=== PATIENT | female | born 1950 | race Caucasian/White ===

== ENCOUNTER → 2020-10-07 10:12 | Outpatient (POV) | payer MEDICARE, SELFPAY | PROVIDERS: Visit Provider Otolaryngology | DX: Z00.00 Encounter for general adult medical examination without abnormal findings (principal) ==

== ENCOUNTER 2022-11-19 03:15 | Observation (INO) | payer MEDICARE, SELFPAY ==
[2022-11-19] VITALS (8 sets, daily range): BP systolic 111–164; BP diastolic 48–64; PULSE 74–100; RESP 16–20; TEMP 36.6–36.9; O2SAT 90–100; BMI 29.9; BMI 30.2
--- NOTE | 2022-11-19 03:46 | XR_ITS ---
PROCEDURE INFORMATION: Exam: XR Chest Exam date and time: 11/19/2022 5:08 AM Age: 72 years old Clinical indication: Other: Epigastric pain; Additional info: Epigastic pain TECHNIQUE: Imaging protocol: Radiologic exam of the chest. Views: 1 view. COMPARISON: CT ABDOMEN PELVIS W CON 11/19/2022 4:48 AM FINDINGS: Lungs: Unremarkable. No consolidation. Pleural spaces: Unremarkable. No pleural effusion. No pneumothorax. Heart/Mediastinum: Unremarkable. No cardiomegaly. Bones/joints: Unremarkable. IMPRESSION: No acute findings.
--- NOTE | 2022-11-19 03:46 | CT_ITS ---
PROCEDURE INFORMATION: Exam: CT Head Without Contrast Exam date and time: 11/19/2022 4:46 AM Age: 72 years old Clinical indication: Pain; Headache TECHNIQUE: Imaging protocol: Computed tomography of the head without contrast. Radiation optimization: All CT scans at this facility use at least one of these dose optimization techniques: automated exposure control; mA and/or kV adjustment per patient size (includes targeted exams where dose is matched to clinical indication); or iterative reconstruction. REPORTING DATA: Count of CT and Cardiac NM exams in prior 12 months: This patient has received [address] and 0 known cardiac nuclear medicine studies in the 12 months prior to the current study. COMPARISON: No relevant prior studies available. FINDINGS: Brain: There is diffuse prominence of the cerebral sulci, cisterns, and ventricles consistent with atrophy. No intra or extra-axial fluid collections are noted. No mass or mass effect is seen. Periventricular white matter hypoattenuation is seen consistent with small vessel chronic ischemic changes. Cerebral ventricles: No ventriculomegaly. Paranasal sinuses: Visualized sinuses are unremarkable. No fluid levels. Mastoid air cells: Visualized mastoid air cells are well aerated. Bones/joints: Unremarkable. No acute fracture. Soft tissues: Unremarkable. IMPRESSION: No acute process noted.
--- NOTE | 2022-11-19 03:46 | CT_ITS ---
PROCEDURE INFORMATION: Exam: CT Abdomen And Pelvis With Contrast Exam date and time: 11/19/2022 4:48 AM Age: 72 years old Clinical indication: Abdominal pain TECHNIQUE: Imaging protocol: Computed tomography of the abdomen and pelvis with contrast. Radiation optimization: All CT scans at this facility use at least one of these dose optimization techniques: automated exposure control; mA and/or kV adjustment per patient size (includes targeted exams where dose is matched to clinical indication); or iterative reconstruction. Contrast material: ISOVUE; Contrast volume: 75 ml; Contrast route: IV; REPORTING DATA: Count of CT and Cardiac NM exams in prior 12 months: This patient has received [address] and 0 known cardiac nuclear medicine studies in the 12 months prior to the current study. COMPARISON: No relevant prior studies available. FINDINGS: Liver: Normal. No mass. Gallbladder and bile ducts: Dependent sludge is seen in the gallbladder. Pancreas: Normal. No ductal dilation. Spleen: Benign-appearing splenic granulomas. Adrenal glands: Normal. No mass. Kidneys and ureters: Normal. No hydronephrosis. Stomach and bowel: Concentric thickening and inflammatory change of the sigmoid colon is noted. Adjacent edema and fluid is seen. Discrete abscess is not identified. No obstruction is noted. Extensive diverticulosis is present. Appendix: No evidence of appendicitis. Intraperitoneal space: Unremarkable. No free air. No significant fluid collection. Vasculature: Unremarkable. No abdominal aortic aneurysm. Lymph nodes: Unremarkable. No enlarged lymph nodes. Urinary bladder: Unremarkable as visualized. Reproductive: Unremarkable as visualized. Bones/joints: Unremarkable. No acute fracture. Soft tissues: Broad-based ventral hernia. IMPRESSION: 1. Moderately severe diverticulitis of the sigmoid colon. No perforation or obstruction is noted. 2. Cholelithiasis.
--- NOTE | 2022-11-19 03:49 | HMH.EDGENADL ---
Discharge Plan Disposition Patient Disposition: Admitted As Inpatient Condition: Fair Prescriptions Prescriptions: No Action atorvastatin 10 MG Tablet 10 mg PO DAILY lisinopril 20 MG Tablet 20 mg PO DAILY aspirin [Aspir-81] 81 MG Tablet.Dr 81 mg PO DAILY bupropion HCl 150 MG Tab.Er.24h 150 mg PO DAILY prednisone 20 MG Tablet 20 mg PO BID Qty: 10 0RF Referrals Follow up/Referrals: Yessica Murdock [Primary Care Provider] - See instructions Clinical Impressions Clinical Impression: Diverticulitis of sigmoid colon, Fever, Leukocytosis Discharge ED Provider: Lili Mora Adult HPI General Chief complaint: Abdominal Pain Stated complaint: HILLIARD,Nausea,Fever,Abd pain Time Seen by Provider: 11/19/22 03:24 Mode of Arrival: Ambulatory Source of Information: Patient Limitations: No Limitations Description of Symptoms (Recalled from ER Triage Doc. by RN): Pt present today with complaints of frontal HILLIARD with dizziness and nausea. Pt has hx of vertigo. States she been having lower left abdominal pain worse with BM and sitting. Rates the pain 10/10 when doing so. States her stool is liquid like yellow in color. History of Present Illness HPI narrative: Patient is a 72-year-old female who is here secondary to severe lower abdominal pain she has been going on for 6 months and got worse in the past 2 weeks. Patient's last 20 pounds since March 2022. Patient has nausea, vomiting, soft stool, headache, fevers of 102. No neck pain. Patient has a history of breast cancer and with mastectomy and chemotherapy but that was in 2011. Patient has been in remission since then. Patient has no urinary symptoms or urgency frequency or burning urination. She does have a frontal headache but she has not had a sore throat. She is not vaccinated for COVID or flu or pneumonia. She had a colonoscopy 10 years ago but has not had a recheck on a colonoscopy. She is not having any belching burping or heartburn. She said her stool has been different in terms of more yellowish and change in pattern with soft stools. She has lost weight as well. Onset (ago): month(s) Location: abdomen Radiation: non-radiation Severity: moderate Severity scale (1-10): 8 Quality: stabbing and sharp Consistency: constant Relieving factors: none Exacerbating factors: none Associated symptoms: headaches, loss of appetite and nausea/vomiting Treatments prior to arrival: none Related Data Home Medications Medication Instructions Recorded Confirmed aspirin 81 mg tablet,delayed 81 mg PO DAILY Blood thinner 02/15/18 10/21/18 release (Aspir-) atorvastatin 10 mg tablet 10 mg PO DAILY Hypertension 02/15/18 10/21/18 bupropion HCl 150 mg 24 hr tablet, 150 mg PO DAILY Depression 02/15/18 10/21/18 extended release lisinopril 20 mg tablet 20 mg PO DAILY Hypertension 02/15/18 11/19/22 Previous Rx's Medication Instructions Recorded prednisone 20 mg tablet 20 mg PO BID ##10 10/22/18 Allergies Allergy/AdvReac Type Severity Reaction Status Date / Time oxycodone [From Percocet] Allergy Verified 11/19/22 03:48 [facility] Disclaimer: The information contained in this section may have been updated after the patient was seen, as this information can be updated by other users. Social History Smoking Status: Never smoker alcohol intake: never current occupational status: disabled Travel in the last 8 weeks: None caffeine: No ROS Obtained: Yes All systems reviewed & no additional complaints except as documented Constitutional Constitutional: Reports chills and Reports fever(s) Gastrointestinal Gastrointestingal: Reports abdominal pain and nausea Physical Exam General General appearance: alert Head Head exam: atraumatic, normocephalic and normal inspection Eye Eye exam: Present normal appearance, PERRL and EOMI; Absent scleral icterus or conjunctival
--- NOTE | 2022-11-19 03:57 | ECG_ITS ---
APPROVED REPORT Exam: Resting ECG HR:91 bpm ECG Measurements Heart Rate 91 AXES FL 191 P 53 QRSd 95 QRS 11 QT 340 T 67 QTc 389 Conclusion SINUS RHYTHM Normal ECG UNCONFIRMED REPORT Electronically signed by : Shawn Bethea MD 11/20/2022 08:35:14
[2022-11-19 04:00] LABS: Coronavirus 19, PCR Not Detected (NotDetected); Influenza A, PCR Not Detected (NotDetected); Influenza B, PCR Not Detected (NotDetected)
[2022-11-19 04:10] LABS: Alanine Aminotransferase 16 U/L (12-78); Albumin Level 4.2 g/dl (3.5-5.0); Albumin/Globulin Ratio 1.3 (1.1-1.8); Alkaline Phosphatase 103 U/L (38-126); Anion Gap 8.7 mEq/L (5-15); Aspartate Amino Transferase 20 U/L (14-36); Bilirubin,Total 1.1 mg/dl (0.2-1.3); Blood Urea Nitrogen 9 mg/dl (7-17); Calcium 8.9 mg/dl (8.4-10.2); Carbon Dioxide 26 mmol/L (22.0-30.0); Chloride 100 mmol/L (98-107); Creatinine Clearance Estimated 71 mL/min (50-200); Estimated Glomerular Filt Rate 99 ml/min (>60); GFR (African American) 119 ML/MIN (>60); Globulin 3.3 g/dL (1.3-3.2); Glucose 149 mg/dl (74-100); Lipase 28 U/L (23-300); Potassium 3.7 mmoL/L (3.5-5.1); Sodium 131 mmol/L (136-145); Total Protein,Serum 7.5 g/dl (6.3-8.2)
[2022-11-19 04:11] LABS: Activated Partial Thrombo Time 27.6 seconds (22.8-30.6); INR 1.02 (0.9-1.1)
[2022-11-19 04:12] LABS: Basophils % 0.2 % (0.1-2.0); Eosinophils # 0.2 K/mm3 (0.0-0.4); Eosinophils % 1.1 % (0.1-12.0); Hematocrit 39.4 % (37.0-47.0); Hemoglobin 13.1 g/dL (12.2-16.2); Lymphocytes # 2.2 K/mm3 (0.7-4.5); Lymphocytes % 12.8 % (10-50); Mean Corpuscular HGB Conc 33.1 g/dL (31.8-35.4); Mean Corpuscular Hemoglobin 29.2 pg (27.0-31.2); Mean Corpuscular Volume 88.2 fl (81-99); Mean Platelet Volume 8.3 fl (7.4-10.4); Monocytes # 1.2 K/mm3 (0.1-1.0); Monocytes % 6.8 % (1.7-9.3); Neutrophils # 13.8 K/mm3 (1.8-7.8); Neutrophils % 79.1 % (37.0-80.0); Platelet Count 455 K/mm3 (142-424); Red Blood Count 4.46 M/mm3 (4.20-5.40); Red Cell Distribution Width 13.6 % (11.5-17.5); White Blood Count 17.4 K/mm3 (4.8-10.8)
[2022-11-19 04:13] LABS: Creatine Kinase 47 U/L (30-135)
[2022-11-19 04:17] LABS: Lactic Acid 0.8 mmol/L (0.7-2.1)
[2022-11-19 04:22] LABS: MANUAL DIFFERENTIAL MANUAL DIFFERENTIAL (MANUAL DIFF)
[2022-11-19 04:23] LABS: CKMB Relative Index 0.4 U/L (0-4.0); Creatine Kinase MB < 0.2 ng/ml (0.0-2.03); Troponin I < 0.01 ng/ml (0.00-0.034)
[2022-11-19 04:24] LABS: Microscopic, Urine URINE MICROSCOPIC (MICROSCOPIC)
[2022-11-19 04:26] LABS: Appearance,Urine CLEAR (Clear); Bilirubin,Urine Negative (Negative); Blood, Urine 1+ (Negative); Color,Urine YELLOW (Yellow); Glucose,Urine (UA) Negative (Negative); Ketones,Urine TRACE (Negative); Leukocyte Esterase,Urine 1+ (Negative); Nitrate,Urine Negative (Negative); Protein,Urine TRACE (Negative); Specific Gravity, Urine 1.025 (1.005-1.030); Urobilinogen,Urine 0.2 EU/dl (0.2)
[2022-11-19 04:27] LABS: Bacteria,Urine 1+ /lpf
[2022-11-19 05:21] LABS: Lymphocytes % 19 % (10-50); Monocytes % 3 % (2-9); Neutrophils % 77 % (42-76); Platelet Estimate Normal; RBC Morphology Normal; Total Cells Counted 100
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
--- NOTE | 2022-11-19 06:46 | PC.NURSE ---
Pt arrived via wheelchair @ [id number]
--- NOTE | 2022-11-19 11:02 | HMH.PHAINT1 ---
Pharmacy Intervention Comments: MEDICATION RECONCILIATION COMPLETED ON PATIENT USING EXTERNAL FILL HISTORY FROM PHARMACY. -KAREN BRAUN, PRIYAD
--- NOTE | 2022-11-19 11:03 | PC.NURSE ---
courtesy tech note; rounded on pt, assisted pt to toilet standby assist. pt denied need for drink or need to reposition. call light within reach, no further requests at this time. Shaunna Lin, ALVINO
--- NOTE | 2022-11-19 12:44 | EXP.DC.SUM ---
General Admission date:: 11/19/22 HPI HPI HPI: Ms. Sun is a 72-year-old female with a past medical history of Breast Cancer s/p Masectomy and Chemotherapy, HTN, Hyperlipidemia. She presents to [facility] due to a 6 month episode of Lower abdominal quadrant pain that has worsened over the last 2 weeks associated with nausea, vomiting and fevers up to 102.0 in the home. She also reports that she has lost 20 pound unintentionally since 03/2022 secondary to not being able to eat well due to the pain. She reports that her last colonoscopy was approximately 10 years ago. In the ER, she underwent a CT of the abdomen and pelvis that showed moderate to severe diverticulitis of the sigmoid colon with no perforation or obstruction. CBC showed a WBC of 17.4. Urinalysis showed 1 plus bacteria, 1 plus leukoesterase, was negtive for nitrates and showed 1 plus blood. In the ER, the patient received, Zosyn 3.375 grams x 1 and Normal Saline x 1 Liter. The patient will be admitted with initial impression: Acute Diverticulitis. We will continue iv antibiotics, slowly advance diet as tolerates. Recommended outpatient colonoscopy at discharge. The plan of care was discussed on admission with the patient and her at bedside in the ER. Both verbalized understanding and agreement with the plan of care. Hospital Course Hospital Course Hospital Course: Patient was admitted from the emergency department for sigmoid diverticulitis. Patient was started on IV antibiotics Zosyn. Patient was given clear liquid diet morning tolerated well, tolerated regular diet and afternoon requesting to go home. Since patient is ambulating having bowel movements had a decrease in pain and is able to eat will discharge on p.o. antibiotics with primary care physician follow-up. Exam Data for Last 24 hours Vital signs and Labs for Last 24 Hours: Temp Pulse Resp BP Pulse Ox 98.0 F 75 19 128/58 L 100 11/19/22 08:00 11/19/22 08:00 11/19/22 08:00 11/19/22 08:00 11/19/22 08:10 Laboratory Results - last 24 hr 11/19/22 03:30: Urine Color Yellow, Urine Appearance Clear, Urine pH 6.0, Ur Specific [place] 1.025, Urine Protein Trace, Urine Glucose (UA) Negative, Urine Ketones Trace, Urine Blood 1+, Urine Nitrate Negative, Urine Bilirubin Negative, Urine Urobilinogen 0.2, Ur Leukocyte Esterase 1+ A, Urine RBC 3-5, Urine WBC 5-10, Ur Squamous Epith Cells 3-5, Urine Bacteria 1+ 11/19/22 03:30: WBC 17.4 H, RBC 4.46, Hgb 13.1, Hct 39.4, MCV 88.2, MCH 29.2, MCHC 33.1, RDW 13.6, Plt Count 455 H, MPV 8.3, Neut % (Auto) 79.1, Lymph % (Auto) 12.8, [place] % (Auto) 6.8, Eos % (Auto) 1.1, Baso % (Auto) 0.2, Neut # (Auto) 13.8 H, Lymph # (Auto) 2.2, [place] # (Auto) 1.2 H, Eos # (Auto) 0.2, Baso # (Auto) 0.0, Total Counted 100, Neutrophils % (Manual) 77 H, Lymphocytes % (Manual) 19, Monocytes % (Manual) 3, Basophils % (Manual) 1.0, Platelet Estimate Normal, RBC Morphology Normal 11/19/22 03:30: PT 11.0, INR 1.02, APTT 27.6 11/19/22 03:30: Sodium 131 L, Potassium 3.7, Chloride 100, Carbon Dioxide 26, Anion Gap 8.7, BUN 9, Creatinine 0.60, Estimated Creat Clear 71, Estimated GFR 99, Est GFR ( Amer) 119, Glucose 149 H, Calcium 8.9, Total Bilirubin 1.1, AST 20, ALT 16, Alkaline Phosphatase 103, Total Creatine Kinase 47, CK-MB (CK-2) < 0.2, CK-MB (CK-2) Rel Index 0.4, Troponin I < 0.01, Total Protein 7.5, Albumin 4.2, Globulin 3.3 H, Albumin/Globulin Ratio 1.3, Lipase 28 11/19/22 03:30: Lactate 0.8 11/19/22 03:50: SARS-CoV-2 (PCR) Not detected, Influenza A Untype (PCR) Not detected, Influenza Type B (PCR) Not detected I & O for Last 24 hours: Intake & Output 04/11/23 04/12/23 04/13/23 04/14/23 23:59 23:59 23:59 23:59 Output Total 100 / 100 Balance -100 / -100 Weight 87.5 kg Constitutional Constitutional: no acute distress *Routine HEENT Exam Head: Present normocephalic Eye: Present EOMI and PERRL ENT: Present mucous membranes moist *Routine
--- NOTE | 2022-11-22 15:42 | CARE MANAGER ---
Spoke with patient's as she was sleeping. He states she feels the same and is still having abdominal pain. She has only been able to tolerate a liquid diet. She has follow up with PCP on 11/25. Discussed getting in sooner if pain continues. Denies any other questions or concerns. Patient is taking antibiotics. SUSAN Powell
== END 2022-11-19 13:35 | disposition home or self-care (01) ==
LOC: ER 05:20 → 2ND 06:09
PROVIDERS: Admitting Provider Student in an Organized Health Care Education/Training Program; Emergency Provider Emergency Medicine; PCP Family Medicine; Visit Provider Student in an Organized Health Care Education/Training Program
DX: K57.32 Diverticulitis of large intestine without perforation or abscess without bleeding (principal); I10 Essential (primary) hypertension; E78.5 Hyperlipidemia, unspecified; Z79.899 Other long term (current) drug therapy; Z28.310 Unvaccinated for COVID-19; N39.0 Urinary tract infection, site not specified; F17.210 Nicotine dependence, cigarettes, uncomplicated; R10.30 Lower abdominal pain, unspecified
CPT/HCPCS: G0378; 70450; 71045; 74177; 80053; 81001; 82550; 82553; 83605; 83690; 84484; 85007; 85025; 85610; 85730; 87086; 93005; 99285; C9803; J0131; J2405; J2543; Q9967; U0003; U0005

== ENCOUNTER 2024-01-16 14:04 | Observation (INO) | payer MEDICARE, SELFPAY ==
[2024-01-16] VITALS (9 sets, daily range): BP systolic 128–165; BP diastolic 64–89; PULSE 63–73; RESP 18–20; TEMP 36.3–36.8; O2SAT 92–99; BMI 29.7; BMI 29.3
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
--- NOTE | 2024-01-16 14:22 | CT_ITS ---
FINAL REPORT CLINICAL HISTORY: Acute abdominal pain COMPARISON: 11/19/2022 FINDINGS: CT OF THE ABDOMEN AND PELVIS WITH CONTRAST Axial CT images of the abdomen and pelvis were obtained after the administration of IV contrast. Coronal reformatted images were also obtained and reviewed.This study was performed with techniques to keep radiation doses as low as reasonably achievable (ALARA). Individualized dose reduction techniques using automated exposure control or adjustment of mA and/or kV according to the patient''s size were employed. Abdomen: There is postoperative change in the right anterior chest wall. Mild bibasilar atelectasis is noted. There is a small amount of ascites. The heart is normal in size. The liver has an unremarkable appearance, without evidence of mass or biliary ductal dilatation. Multiple gallstones are noted in the gallbladder. There is gallbladder wall thickening. Acute cholecystitis is not excluded. The spleen is unremarkable. No adrenal mass is present. The pancreas has an unremarkable appearance. There are several small bilateral renal cysts measuring up to 12 mm on the right. No follow-up is recommended as these are most likely benign. There is a 3 mm nonobstructing left renal stone. The aorta is normal in caliber. There are borderline right abdominal mesenteric nodes which are stable and may be reactive. There are multiple fluid-filled bowel loops in a nonspecific pattern. Enteritis is not excluded. Sigmoid diverticulosis is noted. Pelvis: The appendix is normal. The urinary bladder is unremarkable. No inflammatory process is seen. IMPRESSION: Multiple fluid-filled dilated bowel loops, likely enteritis. Gallstones with mild gallbladder wall thickening. Cholecystitis not excluded. If indicated, hepatobiliary scan may further evaluate. Small amount of ascites. Reviewed, Interpreted and Dictated by Josh Reyes III, MD Transcribed by Sheba Maya Authenticated and [facility]
[2024-01-16 14:58] LABS: Adenovirus F 40/41, stool Not Detected (NotDetected); Astrovirus Not Detected (NotDetected); Campylobacter Not Detected (NotDetected); Clostridium Difficile A/B, PCR Not Detected (NotDetected); Cryptosporidium Not Detected (NotDetected); Cyclospora Cayetanesis Not Detected (NotDetected); Entamoeba histolytica Not Detected (NotDetected); Enteroaggregative E coli Not Detected (NotDetected); Enteropathogenic E coli Not Detected (NotDetected); Enterotoxigenic E coli Not Detected (NotDetected); Giardia lamblia Not Detected (NotDetected); Norovirus Not Detected (NotDetected); Plesimonas Shigalloides, PCR Not Detected (NotDetected); Rotavirus A Not Detected (NotDetected); Salmonella, PCR Not Detected (NotDetected); Sapovirus Not Detected (NotDetected); Shiga-like toxin E coli Not Detected (NotDetected); Shigella Enterovasive E coli Not Detected (NotDetected); Vibrio Cholerae Not Detected (NotDetected); Vibrio, PCR Not Detected (NotDetected); Yersinia Entercolitica, PCR Not Detected (NotDetected)
[2024-01-16] MEDS: KETOROLAC 30MG/ML VIAL 15 MG IV (14:58)
[2024-01-16] MEDS: ONDANSETRON 4MG/2ML VIAL 4 MG IV (14:58)
[2024-01-16] MEDS: LACTATED RINGERS 1000ML 1,000 ML 999 ML IV (14:58)
[2024-01-16] MEDS: ACETAMINOPHEN 1,000MG/100ML VIAL 1000 MG IV (14:58)
[2024-01-16 15:00] LABS: Microscopic, Urine URINE MICROSCOPIC (MICROSCOPIC)
[2024-01-16 15:05] LABS: Appearance,Urine CLOUDY (Clear); Bilirubin,Urine Negative (Negative); Blood, Urine TRACE-I (Negative); Color,Urine YELLOW (Yellow); Glucose,Urine (UA) Negative (Negative); Ketones,Urine Negative (Negative); Leukocyte Esterase,Urine 3+ (Negative); Nitrate,Urine Negative (Negative); PH,Urine 7.5 (5.0-8.5); Protein,Urine Negative (Negative); Urobilinogen,Urine 0.2 EU/dl (0.2)
[2024-01-16 15:05] LABS: Basophils # 0.1 K/mm3 (0-0.2); Basophils % 0.7 % (0.1-2.0); Eosinophils # 0.5 K/mm3 (0.0-0.4); Hematocrit 44.5 % (37.0-47.0); Hemoglobin 14.7 g/dL (12.2-16.2); Lymphocytes # 3.6 K/mm3 (0.7-4.5); Lymphocytes % 24.6 % (10-50); Mean Corpuscular Hemoglobin 29.6 pg (27.0-31.2); Mean Corpuscular Volume 89.8 fl (81-99); Mean Platelet Volume 8.5 fl (7.4-10.4); Monocytes # 0.8 K/mm3 (0.1-1.0); Monocytes % 5.2 % (1.7-9.3); Neutrophils # 9.8 K/mm3 (1.8-7.8); Neutrophils % 66.4 % (37.0-80.0); Platelet Count 396 K/mm3 (142-424); Red Blood Count 4.96 M/mm3 (4.20-5.40); Red Cell Distribution Width 14.7 % (11.5-17.5); White Blood Count 14.8 K/mm3 (4.8-10.8)
[2024-01-16 15:07] LABS: Chloride 102 mmol/L (98-107); Potassium 4.1 mmoL/L (3.5-5.1); Sodium 140 mmol/L (136-145)
[2024-01-16 15:09] LABS: Lactic Acid 1.1 mmol/L (0.7-2.1)
[2024-01-16 15:10] LABS: Alanine Aminotransferase 22 U/L (12-78); Albumin Level 4.3 g/dl (3.5-5.0); Albumin/Globulin Ratio 1.3 (1.1-1.8); Alkaline Phosphatase 92 U/L (38-126); Anion Gap 10.1 mEq/L (5-15); Aspartate Amino Transferase 25 U/L (14-36); Bilirubin,Total 0.7 mg/dl (0.2-1.3); Blood Urea Nitrogen 13 mg/dl (7-17); Calcium 9.6 mg/dl (8.4-10.2); Carbon Dioxide 32 mmol/L (22.0-30.0); Creatinine Clearance Estimated 69 mL/min (50-200); Estimated Glomerular Filt Rate 98 ml/min (>60); GFR (African American) 119 ML/MIN (>60); Globulin 3.4 g/dL (1.3-3.2); Glucose 104 mg/dl (74-100); Lipase 44 U/L (23-300); Total Protein,Serum 7.7 g/dl (6.3-8.2)
[2024-01-16 15:11] LABS: Magnesium 2.1 mg/dl (1.6-2.3)
--- NOTE | 2024-01-16 15:11 | PC.NURSE ---
PT provided with warm blanket
[2024-01-16 15:21] LABS: Bacteria,Urine Trace /lpf; Transitional Epi Cells,Urine OCC #/lpf (0-3); WBC,Urine 50-100 #/hpf (0-3)
--- NOTE | 2024-01-16 15:47 | PC.NURSE ---
PT to CT by WC at this time
[2024-01-16] MEDS: SODIUM CHLORIDE 0.9% 10ML SYR (RAD ONLY) 10 ML IV (15:56)
[2024-01-16] MEDS: IOPAMIDOL-370 (76%);100ML BOTTLE 75 ML IV (15:57)
--- NOTE | 2024-01-16 16:45 | PC.NURSE ---
KOREY VILCHIS SPEAKING WITH DR OLIVO
--- NOTE | 2024-01-16 16:49 | PC.NURSE ---
FISCAL CLERK NOTIFIED OF ADMISSION
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
--- NOTE | 2024-01-16 16:59 | PC.NURSE ---
REPORT CALLED TO SUSAN STONE ON THE FLOOR
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
--- NOTE | 2024-01-16 17:23 | PC.NURSE ---
arrived by w/c from ED
[2024-01-16] MEDS: LACTATED RINGERS 1000ML 1,000 ML 75 ML IV (17:46)
[2024-01-16] MEDS: PIPERACILLIN/TAZO 3.375 GM in 0.9 % SODIUM CHLORIDE 50 ML IV ×2 (17:46→21:52)
[2024-01-16] MEDS: MELATONIN 10 MG 10 EACH PO (20:19)
[2024-01-16 20:28] LABS: Adenovirus F 40/41, stool Not Detected (NotDetected); Astrovirus Not Detected (NotDetected); Campylobacter Not Detected (NotDetected); Clostridium Difficile A/B, PCR Not Detected (NotDetected); Cryptosporidium Not Detected (NotDetected); Cyclospora Cayetanesis Not Detected (NotDetected); Entamoeba histolytica Not Detected (NotDetected); Enteroaggregative E coli Not Detected (NotDetected); Enteropathogenic E coli Not Detected (NotDetected); Enterotoxigenic E coli Not Detected (NotDetected); Giardia lamblia Not Detected (NotDetected); Norovirus Not Detected (NotDetected); Plesimonas Shigalloides, PCR Not Detected (NotDetected); Rotavirus A Not Detected (NotDetected); Salmonella, PCR Not Detected (NotDetected); Sapovirus Not Detected (NotDetected); Shiga-like toxin E coli Not Detected (NotDetected); Shigella Enterovasive E coli Not Detected (NotDetected); Vibrio Cholerae Not Detected (NotDetected); Vibrio, PCR Not Detected (NotDetected); Yersinia Entercolitica, PCR Not Detected (NotDetected)
[2024-01-16] MEDS: TRAZODONE 50MG TABLET 25 MG PO (23:00)
--- NOTE | 2024-01-17 03:47 | PC.NURSE ---
Pt is alert and oriented x4 and currently tolerating RA well. Pt c/o trouble sleeping, contacted BALWINDER Garcia and was treated per MAR. Pt remains NPO and has been since MD in prep for ultrasound this am. Pt denies pain and has no other acute changes this shift.
[2024-01-17 04:00] VITALS: BP 104/53; PULSE 70; RESP 16; TEMP 36.8; O2SAT 96; BMI 29.3
[2024-01-17] MEDS: PIPERCILLIN/TAZO 3.375 GM in 0.9 % SODIUM CHLORIDE 50 ML IV (04:07)
[2024-01-17 06:56] LABS: Basophils # 0.1 K/mm3 (0-0.2); Basophils % 0.7 % (0.1-2.0); Eosinophils # 0.6 K/mm3 (0.0-0.4); Eosinophils % 5.1 % (0.1-12.0); Hematocrit 41.2 % (37.0-47.0); Hemoglobin 13.3 g/dL (12.2-16.2); Lymphocytes # 2.7 K/mm3 (0.7-4.5); Lymphocytes % 25.4 % (10-50); Mean Corpuscular HGB Conc 32.4 g/dL (31.8-35.4); Mean Corpuscular Hemoglobin 29.7 pg (27.0-31.2); Mean Corpuscular Volume 91.6 fl (81-99); Mean Platelet Volume 9.4 fl (7.4-10.4); Monocytes # 0.9 K/mm3 (0.1-1.0); Monocytes % 8.5 % (1.7-9.3); Neutrophils # 6.5 K/mm3 (1.8-7.8); Neutrophils % 60.3 % (37.0-80.0); Platelet Count 314 K/mm3 (142-424); Red Cell Distribution Width 14.7 % (11.5-17.5); White Blood Count 10.8 K/mm3 (4.8-10.8)
--- NOTE | 2024-01-17 07:03 | P.PN_ITS ---
Subjective Patient reports: feels better Exam Data for Last 24 hours Vital signs and Labs for Last 24 Hours: Temp Pulse Resp BP Pulse Ox O2 Del Method 98.2 F 70 16 104/53 L 96 Room Air 01/17/24 04:00 01/17/24 04:00 01/17/24 04:00 01/17/24 04:00 01/17/24 04:00 01/17/24 06:55 Laboratory Results - last 24 hr 01/16/24 14:10: Urine Color Yellow, Urine Appearance Cloudy, Urine pH 7.5, Ur Specific [place] 1.010, Urine Protein Negative, Urine Glucose (UA) Negative, Urine Ketones Negative, Urine Blood Trace-i, Urine Nitrate Negative, Urine Bilirubin Negative, Urine Urobilinogen 0.2, Ur Leukocyte Esterase 3+ A, Urine RBC 3-5, Urine WBC 50-100, Ur Squamous Epith Cells 3-5, Ur Transition Epith Cell Occ, Urine Bacteria Trace 01/16/24 14:51: WBC 14.8 H, RBC 4.96, Hgb 14.7, Hct 44.5, MCV 89.8, MCH 29.6, MCHC 33.0, RDW 14.7, Plt Count 396, MPV 8.5, Neut % (Auto) 66.4, Lymph % (Auto) 24.6, [place] % (Auto) 5.2, Eos % (Auto) 3.0, Baso % (Auto) 0.7, Neut # (Auto) 9.8 H, Lymph # (Auto) 3.6, [place] # (Auto) 0.8, Eos # (Auto) 0.5 H, Baso # (Auto) 0.1, Sodium 140, Potassium 4.1, Chloride 102, Carbon Dioxide 32 H, Anion Gap 10.1, BUN 13, Creatinine 0.60, Estimated Creat Clear 69, Estimated GFR 98, Est GFR ( Amer) 119, Glucose 104 H, Lactate 1.1, Calcium 9.6, Magnesium 2.1, Total Bilirubin 0.7, AST 25, ALT 22, Alkaline Phosphatase 92, Total Protein 7.7, Albumin 4.3, Globulin 3.4 H, Albumin/Globulin Ratio 1.3, Lipase 44 01/16/24 14:55: Stl Aeromonas (PCR) Not detected, Stl C. cayetanensis PCR Not detected, Stool Rotavirus (PCR) Not detected, Stl Adenov F 40/41 PCR Not detecte d, Stool Astrovirus (PCR) Not detected, Stool Campylobacter PCR Not detected, Stl C.difficile Tox PCR Not detected, Stool Cryptosporidium PCR Not detected, Stl E.coli Shiga Tox PCR Not detected, Stool E coli O157 PCR Not detected, Stl Enterotoxigenic E PCR Not detected, Stool EPEC (PCR) Not detected, Stool EAEC (PCR) Not detected, Stl E. histolytica PCR Not detected, Stool Giardia Lamblia PCR Not detected, Stool Salmonella PCR Not detected, Stool Sapovirus (PCR) Not detected, Stl P. shigelloides PCR Not detected, Stl Shigella/EIEC PCR Not detected, St Y.enterocolitica PCR Not detected, Stool Vibrio (PCR) Not detected, Stl Vibrio cholerae PCR Not detected, Stl Norovirus GI/GII PCR Not detected 01/16/24 20:21: Stl Aeromonas (PCR) Not detected, Stl C. cayetanensis PCR Not detected, Stool Rotavirus (PCR) Not detected, Stl Adenov F 40/41 PCR Not detected, Stool Astrovirus (PCR) Not detected, Stool Campylobacter PCR Not detected, Stl C.difficile Tox PCR Not detected, Stool Cryptosporidium PCR Not detected, Stl E.coli Shiga Tox PCR Not detected, Stool E coli O157 PCR Not detected, Stl Enterotoxigenic E PCR Not detected, Stool EPEC (PCR) Not detected, Stool EAEC (PCR) Not detected, Stl E. histolytica PCR Not detected, Stool Giardia [place] PCR Not detected, Stool Salmonella PCR Not detected, Stool Sapovirus (PCR) Not detected, Stl P. shigelloides PCR Not detected, Stl Shigella/EIEC PCR Not detected, St Y.enterocolitica PCR Not detected, Stool Vibrio (PCR) Not detected, Stl Vibrio cholerae PCR Not detected, Stl Norovirus GI/GII PCR Not detected I & O for Last 24 hours: Intake & Output 01/14/24 01/15/24 01/16/24 01/17/24 11:59 11:59 11:59 11:59 Intake Total 240 / 240 Output Total 0 / 0 Balance 240 / 240 Weight 187 lb Constitutional Constitutional: no acute distress *Routine Respiratory Exam Respiratory: Absent respiratory distress *Routine Cardiovascular Exam Cardiovascular: Absent tachycardia *Routine Abdominal Exam Abdominal: Present soft Progress Note: A&P Assessment and plan (1) Enteritis: Status: Acute (2) Leukocytosis: Status: Acute (3) Hyperlipidemia: Status: Acute (4) Hypertension: Status: Acute (5) Diverticulosis: Status: Chronic (6) Cholelithiasis: Status: Acute Assessment and Plan Assessment and Plan for All Diagnoses:: The patient currently feels better . She is hopeful that she will be discharged today. She states that she was made n.p.o. after midnight for ultrasound today. Okay from surgical standpoint for discharge with outpatient follow-up (Dr. Chen)
[2024-01-17 07:05] LABS: Chloride 104 mmol/L (98-107); Potassium 4.4 mmoL/L (3.5-5.1); Sodium 136 mmol/L (136-145)
[2024-01-17 07:07] LABS: Blood Urea Nitrogen 11 mg/dl (7-17); Creatinine Clearance Estimated 68 mL/min (50-200); Estimated Glomerular Filt Rate 98 ml/min (>60); GFR (African American) 119 ML/MIN (>60)
[2024-01-17 07:08] LABS: Alanine Aminotransferase 19 U/L (12-78); Albumin Level 3.9 g/dl (3.5-5.0); Albumin/Globulin Ratio 1.3 (1.1-1.8); Alkaline Phosphatase 83 U/L (38-126); Anion Gap 12.4 mEq/L (5-15); Aspartate Amino Transferase 26 U/L (14-36); Bilirubin,Total 0.8 mg/dl (0.2-1.3); Carbon Dioxide 24 mmol/L (22.0-30.0); Globulin 3.1 g/dL (1.3-3.2); Glucose 99 mg/dl (74-100); Magnesium 2.3 mg/dl (1.6-2.3)
--- NOTE | 2024-01-17 07:30 | PC.NURSE ---
[place] aware pt wants to go home today.
--- NOTE | 2024-01-17 07:36 | HMH.PHAINT1 ---
Pharmacy Intervention Comments: HOME MEDICATION LIST VERIFIED USING LIST FROM PHARMACY
--- NOTE | 2024-01-17 07:42 | PC.NURSE ---
Pt. refused morning medications.
[2024-01-17 08:00] VITALS: BP 143/62; PULSE 78; RESP 18; TEMP 36.6; O2SAT 98
--- NOTE | 2024-01-17 08:39 | PC.NURSE ---
Pt. wants to leave AMA and charge aware.
--- NOTE | 2024-01-17 08:42 | PC.NURSE ---
. aware pt wants to leave AMA.
--- NOTE | 2024-01-17 08:52 | PC.NURSE ---
Pt. agreed to stay for US.
--- NOTE | 2024-01-17 09:12 | PC.NURSE ---
Pt. now refused US and signed AMA papers... Sergio aware.
--- NOTE | 2024-01-17 10:23 | P.DS_ITS ---
General Admission date:: 01/16/24 Discharge date: 01/17/24 HPI HPI HPI: Mrs. Sun is a 73-year-old female with history of breast cancer, abdominal hernia repair 12 years ago, hypertension. She presents with onset of abdominal pain over the past 24 to 48 hours. States she takes milk of magnesia every other day to help have regular bowel movements. Describes these bowel movements as Pratt stool scale class and VII. Reported increased cramping in her lower abdomen and some mild nausea. No blood in stool. No nay emesis. Presented to the ER for evaluation. CT of abdomen obtained showing concern for thickened wall of gallbladder and presence of gallstones. Also noted to have some edematous loops of bowel. White cell count mildly elevated at 14. Afebrile. Stable on room air. Given concern for possible cholecystitis with image findings and leukocytosis versus enteritis, surgery was consulted for evaluation and medicine consulted for admission. On evaluation after arriving to the floor, patient is pleasant and appears hemodynamically stable. On room air. Afebrile. Denies any current nausea or vomiting. Denies any burning when she urinates. Reports pressure-like discomfort in her lower abdomen. No known sick contacts. Denies chest pain or shortness of breath. Hospital Course Hospital Course Hospital Course: patient left AMA and did not wait for US abdomen, could not perform detailed exam on the patient, spoke to the patient who initially said she would wait for US abd and then left AMA Exam Data for Last 24 hours Vital signs and Labs for Last 24 Hours: Temp Pulse Resp BP Pulse Ox O2 Del Method 97.8 F 78 18 143/62 H 98 Room Air 01/17/24 08:00 01/17/24 08:00 01/17/24 08:00 01/17/24 08:00 01/17/24 08:00 01/17/24 08:00 Laboratory Results - last 24 hr 01/16/24 14:10: Urine Color Yellow, Urine Appearance Cloudy, Urine pH 7.5, Ur Specific [place] 1.010, Urine Protein Negative, Urine Glucose (UA) Negative, Urine Ketones Negative, Urine Blood Trace-i, Urine Nitrate Negative, Urine Bilirubin Negative, Urine Urobilinogen 0.2, Ur Leukocyte Esterase 3+ A, Urine RBC 3-5, Urine WBC 50-100, Ur Squamous Epith Cells 3-5, Ur Transition Epith Cell Occ, Urine Bacteria Trace 01/16/24 14:51: WBC 14.8 H, RBC 4.96, Hgb 14.7, Hct 44.5, MCV 89.8, MCH 29.6, MCHC 33.0, RDW 14.7, Plt Count 396, MPV 8.5, Neut % (Auto) 66.4, Lymph % (Auto) 24.6, Petroleum % (Auto) 5.2, Eos % (Auto) 3.0, Baso % (Auto) 0.7, Neut # (Auto) 9.8 H, Lymph # (Auto) 3.6, Petroleum # (Auto) 0.8, Eos # (Auto) 0.5 H, Baso # (Auto) 0.1, Sodium 140, Potassium 4.1, Chloride 102, Carbon Dioxide 32 H, Anion Gap 10.1, BUN 13, Creatinine 0.60, Estimated Creat Clear 69, Estimated GFR 98, Est GFR ( Amer) 119, Glucose 104 H, Lactate 1.1, Calcium 9.6, Magnesium 2.1, Total Bilirubin 0.7, AST 25, ALT 22, Alkaline Phosphatase 92, Total Protein 7.7, Albumin 4.3, Globulin 3.4 H, Albumin/Globulin Ratio 1.3, Lipase 44 01/16/24 14:55: Stl Aeromonas (PCR) Not detected, Stl C. cayetanensis PCR Not detected, Stool Rotavirus (PCR) Not detected, Stl Adenov F 40/41 PCR Not detected, Stool Astrovirus (PCR) Not detected, Stool Campylobacter PCR Not detected, Stl C.difficile Tox PCR Not detected, Stool Cryptosporidium PCR Not detected, Stl E.coli Shiga Tox PCR Not detected, Stool E coli O157 PCR Not detected, Stl Enterotoxigenic E PCR Not detected, Stool EPEC (PCR) Not detected, Stool EAEC (PCR) Not detected, Stl E. histolytica PCR Not detected, Stool Giardia Lamblia PCR Not detected, Stool Salmonella PCR Not detected, Stool Sapovirus (PCR) Not detected, Stl P. shigelloides PCR Not detected, Stl Shigella/EIEC PCR Not detected, St Y.enterocolitica PCR Not detected, Stool Vibrio (PCR) Not detected, Stl Vibrio cholerae PCR Not detected, Stl Norovirus GI/GII PCR Not detected 01/16/24 20:21: Stl Aeromonas (PCR) Not detected, Stl C. cayetanensis PCR Not detected, Stool Rotavirus (PCR) Not detected, Stl Adenov F 40/41 PCR Not detected, Stool Astrovirus (PCR) Not detected, Stool Campylobacter PCR Not detected, Stl C.difficile Tox PCR Not detected, Stool Cryptosporidium PCR Not detected, Stl E.coli Shiga Tox PCR Not detected, Stool E coli O157 PCR Not detected, Stl Enterotoxigenic E PCR Not detected, Stool EPEC (PCR) Not detected, Stool EAEC (PCR) Not detected, Stl E. histolytica PCR Not detected, Stool Giardia Lamblia PCR Not detected, Stool Salmonella PCR Not detected, Stool Sapovirus (PCR) Not detected, Stl P. shigelloides PCR Not detected, Stl Shigella/EIEC PCR Not detected, St Y.enterocolitica PCR Not detected, Stool Vibrio (PCR) Not detected, Stl Vibrio cholerae PCR Not detected, Stl Norovirus GI/GII PCR Not detected 01/17/24 06:13: WBC 10.8 D, RBC 4.50, Hgb 13.3, Hct 41.2, MCV 91.6, MCH 29.7, MCHC 32.4, RDW 14.7, Plt Count 314, MPV 9.4, Neut % (Auto) 60.3, Lymph % (Auto) 25.4, Petroleum % (Auto) 8.5, Eos % (Auto) 5.1, Baso % (Auto) 0.7, Neut # (Auto) 6.5, Lymph # (Auto) 2.7, Petroleum # (Auto) 0.9, Eos # (Auto) 0.6 H, Baso # (Auto) 0.1, Sodium 136, Potassium 4.4, Chloride 104, Carbon Dioxide 24, Anion Gap 12.4, BUN 11, Creatinine 0.60, Estimated Creat Clear 68, Estimated GFR 98, Est GFR ( Amer) 119, Glucose 99, Calcium 9.0, Magnesium 2.3, Total Bilirubin 0.8, AST 26, ALT 19, Alkaline Phosphatase 83, Total Protein 7.0, Albumin 3.9, Globulin 3.1, Albumin/Globulin Ratio 1.3 I & O for Last 24 hours: Intake & Output 06/08/24 01/15/24 01/16/24 01/17/24 23:59 23:59 23:59 23:59 Intake Total 240 / 240 Output Total 0 / 0 0 / 0 Balance 0 / 240 240 / 240 Weight 84.776 kg 84.822 kg Results Data Completed and Pending Labs on day of discharge: Labs from last 24 hours 01/17/24 01/16/24 01/16/24 06:13 20:21 14:55 WBC 10.8 D RBC 4.50 Hgb 13.3 Hct 41.2 MCV 91.6 MCH 29.7 MCHC 32.4 RDW 14.7 Plt Count 314 MPV 9.4 Neut % (Auto) 60.3 Lymph % (Auto) 25.4 Petroleum % (Auto) 8.5 Eos % (Auto) 5.1 Baso % (Auto) 0.7 Neut # (Auto) 6.5 Lymph # (Auto) 2.7 Petroleum # (Auto) 0.9 Eos # (Auto) 0.6 H Baso # (Auto) 0.1 Sodium 136 Potassium 4.4 Chloride 104 Carbon Dioxide 24 Anion Gap 12.4 BUN 11 Creatinine 0.60 Estimated Creat Clear 68 Estimated GFR 98 Est GFR ( Amer) 119 Glucose 99 Lactate Calcium 9.0 Magnesium 2.3 Total Bilirubin 0.8 AST 26 ALT 19 Alkaline Phosphatase 83 Total Protein 7.0 Albumin 3.9 Globulin 3.1 Albumin/Globulin Ratio 1.3 Lipase Urine Color Urine Appearance Urine pH Ur Specific [place] Urine Protein Urine Glucose (UA) Urine Ketones Urine Blood Urine Nitrate Urine Bilirubin Urine Urobilinogen Ur Leukocyte Esterase Urine RBC Urine WBC Ur Squamous Epith Cells Ur Transition Epith Cell Urine Bacteria Stl Aeromonas (PCR) Not detected Not detected Stl C. cayetanensis PCR Not detected Not detected Stool Rotavirus (PCR) Not detected Not detected Stl Adenov F 40/41 PCR Not detected Not detected Stool Astrovirus (PCR) Not detected Not detected Stool Campylobacter PCR Not detected Not detected Stl C.difficile Tox PCR Not detected Not detected Stool Cryptosporidium PCR Not detected Not detected Stl E.coli Shiga Tox PCR Not detected Not detected Stool E coli O157 PCR Not detected Not detected Stl Enterotoxigenic E PCR Not detected Not detected Stool EPEC (PCR) Not detected Not detected Stool EAEC (PCR) Not detected Not detected Stl E. histolytica PCR Not detected Not detected Stool Giardia Lamblia PCR Not detected Not detected Stool Salmonella PCR Not detected Not detected Stool Sapovirus (PCR) Not detected Not detected Stl P. shigelloides PCR Not detected Not detected Stl Shigella/EIEC PCR Not detected Not detected St Y.enterocolitica PCR Not detected Not detected Stool Vibrio (PCR) Not detected Not detected Stl Vibrio cholerae PCR Not detected Not detected Stl Norovirus GI/GII PCR Not detected Not detected 01/16/24 01/16/24 14:51 14:10 WBC 14.8 H RBC 4.96 Hgb 14.7 Hct 44.5 MCV 89.8 MCH 29.6 MCHC 33.0 RDW 14.7 Plt Count 396 MPV 8.5 Neut % (Auto) 66.4 Lymph % (Auto) 24.6 Petroleum % (Auto) 5.2 Eos % (Auto) 3.0 Baso % (Auto) 0.7 Neut # (Auto) 9.8 H Lymph # (Auto) 3.6 Petroleum # (Auto) 0.8 Eos # (Auto) 0.5 H Baso # (Auto) 0.1 Sodium 140 Potassium 4.1 Chloride 102 Carbon Dioxide 32 H Anion Gap 10.1 BUN 13 Creatinine 0.60 Estimated Creat Clear 69 Estimated GFR 98 Est GFR ( Amer) 119 Glucose 104 H Lactate 1.1 Calcium 9.6 Magnesium 2.1 Total Bilirubin 0.7 AST 25 ALT 22 Alkaline Phosphatase 92 Total Protein 7.7 Albumin 4.3 Globulin 3.4 H Albumin/Globulin Ratio 1.3 Lipase 44 Urine Color Yellow Urine Appearance Cloudy Urine pH 7.5 Ur Specific [place] 1.010 Urine Protein Negative Urine Glucose (UA) Negative Urine Ketones Negative Urine Blood Trace-i Urine Nitrate Negative Urine Bilirubin Negative Urine Urobilinogen 0.2 Ur Leukocyte Esterase 3+ A Urine RBC 3-5 Urine WBC 50-100 Ur Squamous Epith Cells 3-5 Ur Transition Epith Cell Occ Urine Bacteria Trace Stl Aeromonas (PCR) Stl C. cayetanensis PCR Stool Rotavirus (PCR) Stl Adenov F 40/41 PCR Stool Astrovirus (PCR) Stool Campylobacter PCR Stl C.difficile Tox PCR Stool Cryptosporidium PCR Stl E.coli Shiga Tox PCR Stool E coli O157 PCR Stl Enterotoxigenic E PCR Stool EPEC (PCR) Stool EAEC (PCR) Stl E. histolytica PCR Stool Giardia Lamblia PCR Stool Salmonella PCR Stool Sapovirus (PCR) Stl P. shigelloides PCR Stl Shigella/EIEC PCR St Y.enterocolitica PCR Stool Vibrio (PCR) Stl Vibrio cholerae PCR Stl Norovirus GI/GII PCR DS: Diagnosis Discharge Diagnosis (1) Enteritis: Status: Acute Code(s): K52.9 - Noninfective gastroenteritis and colitis, unspecified (2) Leukocytosis: Status: Acute Code(s): D72.829 - Elevated white blood cell count, unspecified Qualifiers: Leukocytosis type: leukemoid reaction Qualified Code(s): D72.823 - Leukemoid reaction (3) Hyperlipidemia: Status: Acute Code(s): E78.5 - Hyperlipidemia, unspecified (4) Hypertension: Status: Acute Code(s): I10 - Essential (primary) hypertension (5) Diverticulosis: Status: Chronic Code(s): K57.90 - Diverticulosis of intestine, part unspecified, without perforation or abscess without bleeding (6) Cholelithiasis: Status: Acute Code(s): K80.20 - Calculus of gallbladder without cholecystitis without obstruction Meds Home Medications and Allergies Home Medications Medication Instructions Recorded Confirmed Type atorvastatin 10 mg tablet (Lipitor) 10 mg PO DAILY Cholesterol 02/15/18 01/16/24 History lisinopril 20 mg tablet 20 mg PO DAILY Hypertension 02/15/18 01/16/24 History celecoxib 200 mg capsule 200 mg PO DAILY Arthritis 11/19/22 01/16/24 History levocetirizine 5 mg tablet 5 mg PO DAILY Allergy symptoms 11/19/22 01/16/24 History melatonin 10 mg tablet 10 mg PO HS insomnia 11/19/22 01/16/24 History New Prescriptions to Start Prescriptions: Allergies Allergy/AdvReac Type Severity Reaction Status Date / Time oxycodone [From Percocet] Allergy Verified 01/16/24 18:38 Discharge Plan Disposition Patient Disposition: Left Against Medical Advice Condition: Good Providers Admit Provider: Pepe Demarco Attending Provider: Pepe Demarco
== END 2024-01-17 09:44 | disposition left against medical advice (07) ==
LOC: ER 15:26 → 2ND 16:52
PROVIDERS: Physician Assistant; Admitting Provider Internal Medicine Adolescent Medicine; Emergency Provider Emergency Medicine; PCP Family Medicine; Visit Provider Internal Medicine Adolescent Medicine
DX: K52.9 Noninfective gastroenteritis and colitis, unspecified; D72.823 Leukemoid reaction; E78.5 Hyperlipidemia, unspecified; I10 Essential (primary) hypertension; K57.90 Diverticulosis of intestine, part unspecified, without perforation or abscess without bleeding; K80.20 Calculus of gallbladder without cholecystitis without obstruction; Z79.899 Other long term (current) drug therapy
CPT/HCPCS: 36415; 74177; 80053; 81001; 83605; 83690; 83735; 85025; 87086; 87506; 87507; 99285; G0378; J0131; J1885; J2405; J2543; J7120; Q9967

== ENCOUNTER 2024-01-30 08:05 | Outpatient (CLI) | payer MEDICARE, MEDICAID, SELFPAY ==
--- NOTE | 2024-01-30 08:05 | US_ITS ---
FINAL REPORT CLINICAL HISTORY: Gallstones FINDINGS: Sonographic images of the right upper quadrant were obtained. The pancreas is partially obscured.The liver has an unremarkable appearance. There are numerous tiny gallstones. There is no evidence of biliary ductal dilatation.The common duct measures 4mm. Limited images of the right kidney are unremarkable. IMPRESSION: Numerous tiny gallstones. Reviewed, Interpreted and Dictated by Bonnie Dutta MD Transcribed by Carin Gao Authenticated and . [facility]
== END 2024-01-30 23:59 | disposition home or self-care (01) ==
LOC: RAD 08:05
PROVIDERS: PCP Family Medicine; Visit Provider Surgery
DX: K80.20 Calculus of gallbladder without cholecystitis without obstruction (principal)
CPT/HCPCS: 76705

== ENCOUNTER 2025-01-26 10:23 | Observation (INO) | payer MEDICARE, MEDICAID, SELFPAY ==
[2025-01-26] VITALS (10 sets, daily range): BP systolic 139–172; BP diastolic 69–92; PULSE 77–96; RESP 16–18; TEMP 36.5–37; O2SAT 95–98; BMI 29.9; BMI 31.2
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
--- OUTSIDE RECORDS SUMMARY | 2025-01-26 10:41 | XMS_ITS | Encounter Summary ---
Author Organization Healthcare Address [address] [id number] Care Team Providers Care Assistant To The Ceo Name Role Phone Yessica Murdock MD Primary Care Provider Mariah Aguilar LIQUEFIED PETRO[employer] GASFITTER Unavailable Unavailable Ebony Mohr LIQUEFIED PETROLEUM GASFITTER Unavailable Unavaila ble Reason for Visit * Reason Comments Med Refill Encounter Details Date Type Department Care Team (Late st Contact Info) Description 05/11/2021 Refill [facility] [address] [place] [phone] Yessica Murdock MD [address] [place] [address] Social History Tobacco Use Types Packs/Day Years Used Date Smoking Tobacco: Former Comments Unknown Sex and Gender Information Value Date Recorded Sex Assigned at Not on file Legal Sex Female 8:27 PM EDT Gender Identity Not on file Sexual Orientation Not on file documented as of this encounter Miscellaneous Notes * Telephone Encounter - Martha Almaraz MA - 05/13/2021 11:12 AM EDT Patient is scheduling an appt. She currently has a 30 day supply * Telephone Encounter - Darwin Meyers CPhT - 05/13/2021 9:51 AM EDT Patient missed call but requests a call back again * Telephone Encounter - Taylor Lizama MA - 05/13/2021 8:52 AM EDT Left message for patient to call office documented in this encounter Plan of Treatment Not on file documented as of this encounter Visit Diagnoses Not on filedocumented in this encounter Additional Health Concerns Infection Onset Date Last Indicated Resolved Time COVID-19 Rule-Out 05/10/2024 05/10/2024 05/10/2024 1:59 PM EDT documented as of this encounter Care Teams Assistant To The Ceo Relationship Specialty Start Date End Date Yessica Murdock MD [address] [place] [phone] PCP - General 12/19/20 Mariah Aguilar LPN [employer] [address] TCM Nurse 11/22/22 12/21/22 Ebony Mohr LPN [employer] Licensed Practical Nurse 01/11/23 01/11/23 documented as of this encounter
--- OUTSIDE RECORDS SUMMARY | 2025-01-26 10:41 | XMS_ITS | Encounter Summary ---
Author Organization Healthcare Address [address] [place] [address] Care Team Providers Care Ropewalk Rope Maker Name Role Phone Yessica Murdock MD Primary Care Provider [phone] Mariah Aguilar MOBILE PRACTICE LEAD Unavailable Unavailable Ebony Mohr MOBILE PRACTICE LEAD Unavailable Unavaila ble Encounter Details Date Type Department Care Team (Late st Contact Info) Description 09/17/2022 Outside Procedure External Location [address] [place] [address] Yessica Murdock MD [address] [place] [address] Social History Tobacco Use Types Packs/Day Years Used Date Smoking Tobacco: Former Cigarettes 1.5 20 1 2012 Smokeless Tobacco: Never PHQ-2 Answer Date Recorded Patient Health Questionnaire-2 Score 0 07/20/2022 Comments Unknown Sex and Gender Information Value Date Recorded Sex Assigned at Not on file Legal Sex Female 8:27 PM EDT Gender Identity Not on file Sexual Orientation Not on file documented as of this encounter Plan of Treatment Not on file documented as of this encounter Procedures Procedure Name Priority Date/Time Associated Diagnosis Comments CT CHEST LUNG CANCER SCREENING 09/17/2022 10:40 AM EST documented in this encounter Results * CT Chest Lung Cancer Screening (09/17/2022 10:40 AM EST) Anatomical Region Laterality Modality Chest Computed Tomogra phy 09/17/2022 10:4 0 AM EST Narrative 09/17/2022 11:13 AM EST [address] [address] Name: MENG SUN Exam Date: 09/17/2022 : 1950 Age 72 Gender: F Physician: Yessica Murdock Facility: [facility] Facility HSV: Outpatient Exam: CT LOW DOSE LUNG SCREENING CT CHEST LOW DOSE SCREENING HISTORY: Screening exam for lung cancer. Former smoker, quit 25 years prior. 30 pack year smoking history DOSE: CTDIvol: 2.21 mGy, DLP: 78.68 mGy*cm COMPARISON: 07/20/2021. TECHNIQUE: Axial CT without IV contrast administration using low dose protocol FINDINGS: No acute lung disease is present . There is bibasilar linear atelectasis. There is no consolidation. There are a few small calcified and noncalcified nodules which appear stable from the prior exam, for example there is a 6 mm right upper lobe nodule best seen on series 3 of image 55. No pleural or pericardial effusion is seen . No adenopathy or mass lesion is present . The heart is normal in size. There are multivessel coronary artery calcifications noted. The limited images of the upper abdomen demonstrate a small nonobstructing left renal calculus. IMPRESSION: 1. Stable small calcified and noncalcified nodules. LUNG RADS CATEGORY 2 RECOMMENDATION: 12 month LDCT follow up Images reviewed, interpreted, and dictated by Dr. Karina Fan. Transcribed by Skinny Terry PA-C Dictated By: Karina Patel Transcribed By: Karina Fan Transcribed On: 09/17/2022 11:02 AM Electronically signed by: Karina Patel 09/17/2022 Thank you for referring MENG SUN to [facility]. Legally authenticated by STACEY SUÁREZ 2022-09-17 11:02:27 Procedure Note Provider, Generic [place] - 09/17/[address] [address] Name: MENG SUN Exam Date: 09/17/2022 : 1950 Age 72 Gender: F Physician: Yessica Murdock Facility: [facility] Facility HSV: Outpatient Exam: CT LOW DOSE LUNG SCREENING CT CHEST LOW DOSE SCREENING HISTORY: Screening exam for lung cancer. Former smoker, quit 25 yearsprior. 30 pack year smoking history DOSE: CTDIvol: 2.21 mGy, DLP: 78.68 mGy*cm COMPARISON: 07/20/2021. TECHNIQUE: Axial CT without IV contrast administration using low doseprotocol FINDINGS: No acute lung disease is present . There is bibasilar linearatelectasis. There is no consolidation. There are a few small calcified andnoncalcified nodules which appear stable from the prior exam, for example there is a 6mm right upper lobe nodule best seen on series 3 of image 55. No pleural or pericardial effusion is seen . No adenopathy or mass lesion is present .The heart is normal in size. There are multivessel coronary arterycalcifications noted. The limited images of the upper abdomen demonstrate a small nonobstructing left renal calculus. IMPRESSION: 1. Stable small calcified and noncalcified nodules. LUNG RADS CATEGORY 2 RECOMMENDATION: 12 month LDCT follow up Images reviewed, interpreted, and dictated by Dr. Karina Fan. Transcribed by Skinny Terry PA-C Dictated By: Karina Patel Transcribed By: Karina Fan Transcribed On: 09/17/2022 11:02 AM Electronically signed by: Karina Patel 09/17/2022 Thank you for referring MENG SUN to [facility]. Legally authenticated by STACEY SUÁREZ 2022-09-17 11:02:27 us Yessica Murdock MD IMG CT PROCEDURES Final Resul t documented in this encounter Visit Diagnoses Not on filedocumented in this encounter Additional Health Concerns Infection Onset Date Last Indicated Resolved Time COVID-19 Rule-Out 05/10/2024 05/10/2024 05/10/2024 1:59 PM EDT Assessment Noted Time A fall risk assessment has been complete d for the patient 07/20/2022 8:10 AM EST documented as of this encounter Care Teams Ropewalk Rope Maker Relationship Specialty Start Date End Date Yessica Murdock MD [address] [place] [address] PCP - General 12/19/20 Mariah Aguilar LPN VALUE-[employer]ED [place] [address] TCM Nurse 11/22/22 12/21/22 Ebony Mohr LPN VALUE-BASED TRANSFORMATION PROGRAM Licensed Practical Nurse 01/11/23 01/11/23 documented as of this encounter
--- OUTSIDE RECORDS SUMMARY | 2025-01-26 10:41 | XMS_ITS | Encounter Summary ---
Author Organization Healthcare Address [address] [place] [address] Care Team Providers Care Patient Experience Coordinator Name Role Phone Yessica Murdock MD Primary Care Provider [phone] Encounter Details Date Type Department Care Team (Late st Contact Info) Description 01/24/2024 Outside Procedure External Location [address] [place] [address] Yessica Murdock MD [address] [place] [address] Social History Tobacco Use Types Packs/Day Years Used Date Smoking Tobacco: Former Cigarettes 1.5 2012 Smokeless Tobacco: Never Humiliation, Afraid, Rape, and Kick questionnair e Answer Date Recorded Within the last year, have y ou been afraid of your partner or ex-partner? No 11/25/2023 Within the last year, have y ou been humiliated or emotionally abused in other ways by your partner or ex-partner? No Within the last year, have y ou been kicked, hit, slapped, or otherwise physically hurt by your partner or ex-partner? No 11/25/2023 Within the last year, have y ou been raped or forced to have any kind of sexual activity by your partner or ex-partner? No 11/25/2023 Social Connection and Isolation Panel Answer Date Recorded In a typical week, how many times do you talk on the phone with family, friends, or neighbors? More than three times a week 01/11/2023 How often do you get togethe r with friends or relatives? Once a week 01/11/2023 How often do you attend [facility] or mandaeism services? Never 01/11/2023 Do you belong to any clubs o r organizations such as pentecostalism groups, unions, fraternal or athletic groups, or school groups? No 01/11/2023 How often do you attend meet ings of the clubs or organizations you belong to? Never 01/11/2023 Are you , , di vorced, , never , or living with a partner? 01/11/2023 AUDIT-C Answer Date Recorded Q1: How often do you have a drink containing alcohol? Never 01/11/2023 Q2: How many drinks containi ng alcohol do you have on a typical day when you are drinking? Patient does not drink Q3: How often do you have si x or more drinks on one occasion? Never 01/11/2023 Overall Financial Resource Strain (CARDIA) Answe r Date Recorded How hard is it for you to pa y for the very basics like food, housing, medical care, and heating? Somewhat hard 01/11/2023 PHQ-2 Answer Date Recorded Patient Health Questionnaire-2 Score 0 01/24/2024 [facility] - Occupational Stress Questionnaire Answer Date Recorded Do you feel stress - tense, restless, nervous, or anxious, or unable to sleep at night because your mind is troubled all the time - these days? To some extent 01/11/2023 Exercise Vital Sign Answer Date Recorde d On average, how many days pe r week do you engage in moderate to strenuous exercise (like a brisk walk)? 0 days 01/11/2023 On average, how many minutes do you engage in exercise at this level? 0 min 01/11/2023 Hunger Vital Sign Answer Date Recorded Within the past 12 months, y ou worried that your food would run out before you got the money to buy more. Sometimes true Within the past 12 months, t he food you bought just didn't last and you didn't have money to get more. Sometimes true PRAPARE - Transportation Answer Date Re corded In the past 12 months, has l ack of transportation kept you from medical appointments or from getting medications? No 11/06 In the past 12 months, has l ack of transportation kept you from meetings, work, or from getting things needed for daily living? No 11/25/2023 Housing Stability Vital Sign Answer Krzysztof e Recorded In the last 12 months, was t here a time when you were not able to pay the mortgage or rent on time? No 11/25/2023 Number of Places Lived in the Last Year Not on f ile 11/25/2023 In the last 12 months, was t here a time when you did not have a steady place to sleep or slept in a usp (including now)? No 11/25/2023 Utilities Answer Date Recorded In the past 12 months has th e electric, gas, oil, or water company threatened to shut off services in your home? No 11/25/2023 PHQ-2A Answer Date Recorded Patient Health Questionnaire-2 Score 0 01/17/2023 Comments Unknown Sex and Gender Information Value Date Recorded Sex Assigned at Not on file Legal Sex Female 8:27 PM EDT Gender Identity Not on file Sexual Orientation Not on file documented as of this encounter Functional Status * Over the past 2 weeks, how often have you been bothered by any of the following problems? Question Answer Date of Assessment Author Little interest or pleasure in doing things Not at all 01/24/2024 1:23 PM EDT Martha Almaraz Feeling down, depressed, or hopeless Not at all 01/06 1:23 PM EDT Martha Almaraz Patient Health Questionnaire-2 Score 0 01/06 1:23 PM EDT Martha Almaraz documented as of this encounter Plan of Treatment Not on file documented as of this encounter Procedures Procedure Name Priority Date/Time Associated Diagnosis Comments XR ABDOMEN 2 VIEWS 01/24/2024 2: 50 PM EDT documented in this encounter Results * XR Abdomen 2 Views (01/24/2024 2:50 PM EDT) Anatomical Region Laterality Modality Body Digital Radiogra phy 01/24/2024 2:50 PM EDT Narrative 01/24/2024 4:36 [place] [address] Name: MENG SUN Exam Date: 01/24/2024 : 1950 Age 73 years Gender: F Physician: Yessica Murdock Facility: [facility] Facility HSV: Outpatient Exam: ABD FLAT UPRIGHT 2-VIEW ABDOMEN HISTORY: Epigastric pain. Constipation. FINDINGS: 2 views of the abdomen were obtained. ABDOMEN: There is a nonspecific nonobstructive bowel gas pattern.There is no evidence of free air. There is no free air. There is mild retained stool. There are probable calcified phleboliths in the floor the pelvis. IMPRESSION: Nonobstructive bowel gas pattern. Films reviewed , interpreted and dictated by Transcribed by Boby Shea PA-C. Dictated By: JENNIFER MCLEOD Transcribed By: Jennifer Mcleod Transcribed On: 01/24/2024 4:24 PM Electronically signed by: JENNIFER MCLEOD 01/24/2024 [facility]. Legally authenticated by POPE JENNIFER Keating 2024-01-24 16:24:29 Procedure Note Provider, [facility] - 01/24/2024 [place] [address] Name: MENG SUN Exam Date: 01/24/2024 : 1950 Age 73 years Gender: F Physician: Yessica Murdock Facility: [facility] Facility HSV: Outpatient Exam: ABD FLAT UPRIGHT 2-VIEW ABDOMEN HISTORY: Epigastric pain. Constipation. FINDINGS: 2 views of the abdomen were obtained. ABDOMEN: There is a nonspecific nonobstructive bowel gas pattern.There isno evidence of free air. There is no free air. There is mild retainedstool. There are probable calcified phleboliths in the floor the pelvis. IMPRESSION: Nonobstructive bowel gas pattern. Films reviewed , interpreted and dictated by Transcribed by Boby Shea PA-C. Dictated By: JENNIFER MCLEOD Transcribed By: Jennifer Mcleod Transcribed On: 01/24/2024 4:24 PM Electronically signed by: JENNIFER MCLEOD 01/24/2024 Thank you for referring MENG SUN to [facility]. Legally authenticated by POPE JENNIFER Keating 2024-01-24 16:24:29 us Yessica Murdock MD IMG XR PROCEDURES Final Resul t documented in this encounter Visit Diagnoses Not on filedocumented in this encounter Additional Health Concerns Infection Onset Date Last Indicated Resolved Time COVID-19 Rule-Out 05/10/2024 05/10/2024 05/10/2024 1:59 PM EDT Assessment Noted Time A fall risk assessment has been complete d for the patient 01/24/2024 1:23 PM EDT A Body Mass Index follow-up plan has been documented for the patient 01/24/2024 2:39 PM EDT documented as of this encounter Care Teams Patient Experience Coordinator Relationship Specialty Start Date End Date Yessica Murdock MD [address] [place] [address] PCP - General 12/19/20 documented as of this encounter
--- OUTSIDE RECORDS SUMMARY | 2025-01-26 10:41 | XMS_ITS | Encounter Summary ---
Author Organization Healthcare Address [address] [place] [address] Care Team Providers Care Mattress Filler Name Role Phone Yessica Murdock MD Primary Care Provider [phone] Encounter Details Date Type Department Care Team (Late st Contact Info) Description 10/19/2023 Outside Procedure External Location [address] [place] [address] Yessica Murdock MD [address] [place] [address] Social History Tobacco Use Types Packs/Day Years Used Date Smoking Tobacco: Former Cigarettes 1.5 2012 Smokeless Tobacco: Never Humiliation, Afraid, Rape, and Kick questionnair e Answer Date Recorded Within the last year, have y ou been afraid of your partner or ex-partner? No 01/11/2023 Within the last year, have y ou been humiliated or emotionally abused in other ways by your partner or ex-partner? No Within the last year, have y ou been kicked, hit, slapped, or otherwise physically hurt by your partner or ex-partner? No 01/11/2023 Within the last year, have y ou been raped or forced to have any kind of sexual activity by your partner or ex-partner? No 01/11/2023 Social Connection and Isolation Panel Answer Date Recorded In a typical week, how many times do you talk on the phone with family, friends, or neighbors? More than three times a week 01/11/2023 How often do you get togethe r with friends or relatives? Once a week 01/11/2023 How often do you attend [facility] or pentecostal services? Never 01/11/2023 Do you belong to any clubs o r organizations such as mandaeism groups, unions, fraternal or athletic groups, or [...] Recorded Patient Health Questionnaire-2 Score 0 01/17/2023 [facility] - Occupational Stress Questionnaire Answer Date Recorded [...] have money to get more. Sometimes true 01/2023 PRAPARE - Transportation Answer Date Re corded In the past 12 months, has l ack of transportation kept you from medical appointments or from getting medications? No 01/2023 In the past 12 months, has l ack of transportation kept you from meetings, work, or from getting things needed for daily living? No 01/11/2023 Housing Stability Vital Sign Answer Krzysztof e Recorded In the last 12 months, was t here a time when you were not able to pay the mortgage or rent on time? No 01/11/2023 In the last 12 months, how many places have you lived? 1 01/11/2023 In the last 12 months, was t here a time when you did not have a steady place to sleep or slept in a senior care (including now)? No 01/11/2023 PHQ-2A Answer Date Recorded Patient Health Questionnaire-2 [...] Diagnosis Comments CT CHEST LUNG CANCER SCREENING 10/19/2023 2:14 PM EDT documented in this encounter Results * CT Chest Lung Cancer Screening (10/19/2023 2:14 PM EDT) Anatomical Region Laterality Modality Chest Computed Tomogra phy 10/19/2023 2:14 PM EDT Narrative 10/19/2023 3:30 [place] [address] Name: MENG SUN Exam Date: 10/19/2023 : 1950 Age 73 years Gender: F Physician: Yessica Murdock Facility: [facility] Facility HSV: Outpatient Exam: CT LOW DOSE LUNG SCREENING CT SCAN OF THE CHEST WITHOUT CONTRAST SCREENING PROTOCOL COMPARISON: 07/20/2021 HISTORY: [id number] smoking history in a patient who quit smoking 11 years ago. PROCEDURE: Axial images were obtained from the lung apex to the mid abdomen by computed tomography and a low-dose chest screening protocol. CTDIvo is 2.19 mGy and DLP is 79 mGy-cm. FINDINGS: CHEST: The patient is status post right mastectomy and right axillary lymph node dissection. Prominent left axillary lymph nodes are stable. There is no hilar or mediastinal adenopathy. Heart size is normal. There are multivessel coronary artery calcifications. There is a trace pericardial effusion. Limited images of the upper abdomen are unremarkable. The lungs are hyperinflated with mild emphysema. There is bibasilar linear atelectasis. There are scattered, small calcified and noncalcified pulmonary nodules which are stable. These measure up to 6 mm. IMPRESSION: Stable pulmonary nodules. Lung RADS category 2: Continued low-dose chest CT surveillance recommended in 1 year. Films reviewed , interpreted and dictated by Dr. Karina Fan. Transcribed by Boby Shea PA-C. Dictated By: Karina Patel Transcribed By: Karina Fan Transcribed On: 10/19/2023 3:04 PM Electronically signed by: Karina Patel 10/19/2023 Thank you for referring MENG SUN to [facility]. Legally authenticated by STACEY SUÁREZ 2023-10-19 15:04:43 Procedure Note Provider, Generic [place] - 10/19/2023 [place] [address] Name: MENG SUN Exam Date: 10/19/2023 : 1950 Age 73 years Gender: F Physician: Yessica Murdock Facility: [facility] Facility HSV: Outpatient Exam: CT LOW DOSE LUNG SCREENING CT SCAN OF THE CHEST WITHOUT CONTRAST SCREENING PROTOCOL COMPARISON: 07/20/2021 HISTORY: [id number] smoking history in a patient who quit smoking 11years ago. PROCEDURE: Axial images were obtained from the lung apex to the midabdomen by computed tomography and a low-dose chest screening protocol. CTDIvo is 2.19 mGy and DLP is 79 mGy-cm. FINDINGS: CHEST: The patient is status post right mastectomy and right axillarylymph node dissection. Prominent left axillary lymph nodes are stable. There isno hilar or mediastinal adenopathy. Heart size is normal. There aremultivessel coronary artery calcifications. There is a trace pericardial effusion.Limited images of the upper abdomen are unremarkable. The lungs are hyperinflatedwith mild emphysema. There is bibasilar linear atelectasis. There arescattered, small calcified and noncalcified pulmonary nodules which are stable.These measure up to 6 mm. IMPRESSION: Stable pulmonary nodules. Lung RADS category 2: Continuedlow-dose chest CT surveillance recommended in 1 year. Films reviewed , interpreted and dictated by Dr. Karina Fan. Transcribed by Boby Shea PA-C. Dictated By: Karina Patel Transcribed By: Karina Fan Transcribed On: 10/19/2023 3:04 PM Electronically signed by: Karina Patel 10/19/2023 Thank you for referring MENG SUN to [facility]. Legally authenticated by STACEY SUÁREZ 2023-10-19 15:04:43 us Yessica Murdock MD IMG CT PROCEDURES Final Resul t documented in this encounter Visit Diagnoses Not on filedocumented in this encounter Additional Health Concerns Infection Onset Date Last Indicated Resolved Time COVID-19 Rule-Out 05/10/2024 05/10/2024 05/10/2024 1:59 PM EDT Assessment Noted Time A fall risk assessment has been complete d for the patient 07/11/2023 10:31 AM EST A Body Mass Index follow-up plan has been documented for the patient 07/11/2023 10:14 PM EST documented as of this encounter Care Teams Mattress Filler Relationship Specialty Start Date End Date Yessica Murdock MD [address] [place] [address] PCP - General 12/19/20 documented as of this encounter
--- OUTSIDE RECORDS SUMMARY | 2025-01-26 10:41 | XMS_ITS | Encounter Summary ---
Author Organization Healthcare Address [address] [place] [address] Care Team Providers Care Fitter And Turner Name Role Phone Yessica Murdock MD Primary Care Provider [phone] Mariah Aguilar RELATIONSHIP MANAGEMENT LEAD Unavailable Unavailable Ebony Mohr RELATIONSHIP MANAGEMENT LEAD Unavailable Unavaila ble Encounter Details Date Type Department Care Team (Late st Contact Info) Description 08/16/2022 Outside Procedure External Location [address] [place] [address] Yessica Murdock MD [address] [place] [phone] Social History Tobacco Use Types Packs/Day Years Used Date Smoking Tobacco: Never Smokeless Tobacco: Never PHQ-2 Answer Date Recorded Patient Health Questionnaire-2 Score 0 07/20/2022 Comments Unknown Sex and Gender Information Value Date Recorded Sex Assigned at Not on file Legal Sex Female 8:27 PM EDT Gender Identity Not on file Sexual Orientation Not on file COVID-19 Exposure Response Date Recorded In the last 10 days, have yo u been in contact with someone who was confirmed or suspected to have Coronavirus/COVID-19? No / Unsure 07/20/2022 7:48 AM EST documented as of this encounter Plan of Treatment Not on file documented as of this encounter Procedures Procedure Name Priority Date/Time Associated Diagnosis Comments MAMMOGRAPHY BREAST SCREENING TOMOSYNTHESIS LEFT 08/16/2022 10:51 AM EST documented in this encounter Results * Mammography Breast Screening Tomosynthesis Left (08/16/2022 10:51 AM EST) Anatomical Region Laterality Modality Breast Left Mammography 08/16/2022 10:5 1 AM EST Narrative 08/16/2022 3:22 [place] [address] Name: MENG SUN Exam Date: 08/16/2022 : 1950 Age 72 Gender: F Physician: Yessica Murdock Facility: [facility] Facility HSV: Outpatient Exam: SARATH SCRN MAMMO W/CAD LT Left breast digital screening mammogram with CAD and with breast tomosynthesis Findings: Patient underwent right mastectomy in 09/2011. Left breast tissue is heterogeneously dense. Comparison dates are 01/17/20 and 12/18/18. There are stable calcifications within the left breast. There are no new or suspicious densities. There have been no significant changes. There are no areas of focal mammographic concern. Impression: BI-RADS 2, benign findings Yearly follow-up mammography is recommended. This patient will be sent a letter from the mammography department with their mammography results. Dictated By: MARVA FIGUEROA Transcribed By: Susie Mcgowan Transcribed On: 08/16/2022 12:56 PM Electronically signed by: MARVA FIGUEROA 08/16/2022 Thank you for referring MENG SUN to [facility]. Legally authenticated by CAROLINA DURHAM 2022-08-16 15:07:33 Procedure Note Provider, [facility] - 08/16/2022 [place] [address] Name: MENG SUN Exam Date: 08/16/2022 : 1950 Age 72 Gender: F Physician: Yessica Murdock Facility: [facility] Facility HSV: Outpatient Exam: SARATH SCRN MAMMO W/CAD LT Left breast digital screening mammogram with CAD and with breasttomosynthesis Findings: Patient underwent right mastectomy in 09/2011. Left breasttissue is heterogeneously dense. Comparison dates are 01/17/20 and 12/18/18. Thereare stable calcifications within the left breast. There are no new orsuspicious densities. There have been no significant changes. There are no areasof focal mammographic concern. Impression: BI-RADS 2, benign findings Yearly follow-up mammography is recommended. This patient will be sent a letter from the mammography department withtheir mammography results. Dictated By: MARVA FIGUEROA Transcribed By: Susie Mcgowan Transcribed On: 08/16/2022 12:56 PM Electronically signed by: MARVA FIGUEROA 08/16/2022 Thank you for referring COBYLESLEY MENG to [facility]. Legally authenticated by CAROLINA DURHAM 2022-08-16 15:07:33 us Yessica Murdock MD IMG BI PROCEDURES Final Resul t documented in this encounter Visit Diagnoses Not on filedocumented in this encounter Additional Health Concerns Infection Onset Date Last Indicated Resolved Time COVID-19 Rule-Out 05/10/2024 05/10/2024 05/10/2024 1:59 PM EDT Assessment Noted Time A fall risk assessment has been complete d for the patient 07/20/2022 8:10 AM EST documented as of this encounter Care Teams Fitter And Turner Relationship Specialty Start Date End Date Yessica Murdock MD [address] [place] [id number] PCP - General 12/19/20 Mariah Aguilar LPN [employer] [place] [address] TCM Nurse 11/22/22 12/21/22 Ebony Mohr LPN VALUE-BASED TRANSFORMATION PROGRAM Licensed Practical Nurse 01/11/23 01/11/23 documented as of this encounter
--- NOTE | 2025-01-26 10:42 | CT_ITS ---
PROCEDURE INFORMATION: Exam: CT Abdomen And Pelvis With Contrast Exam date and time: 01/26/2025 11:47 AM Age: 74 years old Clinical indication: Abdominal pain TECHNIQUE: Imaging protocol: Computed tomography of the abdomen and pelvis with contrast. Radiation optimization: All CT scans at this facility use at least one of these dose optimization techniques: automated exposure control; mA and/or kV adjustment per patient size (includes targeted exams where dose is matched to clinical indication); or iterative reconstruction. Contrast material: ISOVUE; Contrast volume: 75 ml; Contrast route: IV; COMPARISON: CT ABDOMEN PELVIS W CON 01/16/2024 3:44 PM FINDINGS: Lungs: There are mild hypoventilatory changes in the lung bases. Liver: Normal. No mass. Gallbladder and biliary ducts: There are tiny gallstones in the gallbladder apex without gallbladder wall thickening. Pancreas: There is normal enhancement of the pancreas. Spleen: There are calcified granulomas in the spleen. Adrenal glands: Normal. Kidneys and ureters: Bilateral kidneys demonstrate no hydronephrosis. There is a 4 mm stone in the left kidney. Stomach and bowel: There are diverticuli in the sigmoid colon with subtle thickening of the bowel wall. There also scattered diverticuli in the descending colon. The transverse colon is fluid-filled. Small bowel loops are not dilated. Appendix: The appendix appears unremarkable. Intraperitoneal space: There is no free intraperitoneal air. There is no free fluid in the abdomen and pelvis. Vasculature: Main portal vein is patent. There is normal caliber of the abdominal aorta and iliac arteries with scattered areas of atherosclerosis. Lymph nodes: There are no enlarged lymph nodes in the abdomen and pelvis. Urinary bladder: Urinary bladder appears unremarkable. Urinary bladder is normally distended. Reproductive: Uterus is present. There is trace fluid in the endometrial canal. There is an exophytic lesion arising from the posterior body of the uterus measuring 2.2 cm and may represent a fibroid. No abnormal adnexal mass lesions are identified. Bones/joints: The osseous structures demonstrate no acute abnormalities. Soft tissues: Unremarkable. IMPRESSION: 1. The cecum, and transverse colon are dilated dilated and fluid-filled along with subtle thickening of the sigmoid colon wall, likely related to diverticulitis. Gastroenterology follow-up is recommended to rule out underlying mass in the sigmoid colon region. 2. No evidence of small bowel obstruction. 3. Punctate nonobstructing nephrolithiasis in the left kidney. 4. Cholelithiasis.
--- OUTSIDE RECORDS SUMMARY | 2025-01-26 10:42 | XMS_ITS | Encounter Summary ---
Author Organization Healthcare Address [address] [place] [address] Care Team Providers Care Zinc Plater Name Role Phone Yessica Murdock MD Primary Care Provider [phone] Encounter Details Date Type Department Care Team (Late st Contact Info) Description 10/22/2024 Results Follow-Up [facility] [address] [place] [address] Yessica Murdock MD [address] [facility] [place] [address] Social History Tobacco Use Types Packs/Day Years Used Date Smoking Tobacco: Former Cigarettes 1.5 20 1 993 - 2013 Smokeless Tobacco: Never Humiliation, Afraid, Rape, and [...] week 01/11/2023 How often do you attend [facility] or nondenominational services? Never 01/11/2023 Do you belong to any clubs o r organizations such as confucianism groups, unions, fraternal or athletic groups, or [...] Date Recorded Patient Health Questionnaire-2 Score 0 [facility] Questionnaire Answer Date [...] place to sleep or slept in a retirement (including now)? No 11/25/2023 PHQ-9 Answer Date Recorded Patient Health Questionnaire-9 Score 0 10/08/2024 Utilities Answer Date Recorded In the past [...] filedocumented in this encounter Additional Health Concerns Assessment Noted Time PHQ-9 Depression Total Score: 0 10/09/19 25 9:35 AM EST A fall risk assessment has been complete d for the patient 10/08/2024 9:35 AM EST A Body Mass Index follow-up plan has been documented for the patient 10/08/2024 10:19 AM EST documented as of this encounter Care Teams Zinc Plater Relationship Specialty Start Date End Date Yessica Murdock MD [address] [place] [id number] PCP - General 12/19/20 documented as of this encounter
--- OUTSIDE RECORDS SUMMARY | 2025-01-26 10:42 | XMS_ITS | Encounter Summary ---
Author Organization Healthcare Address [address] [place] [address] Care Team Providers Care Biodiesel Production Technician Name Role Phone Yessica Murdock MD Primary Care Provider [phone] Encounter Details Date Type Department Care Team (Late st Contact Info) Description 10/19/2024 Outside Procedure External Location [address] [place] [address] Yessica Murdock MD [address] [place] [address] Social History Tobacco Use Types [...] week 01/11/2023 How often do you attend [facility] or oriental orthodox services? Never 01/11/2023 Do you belong to any clubs o r organizations such as religion groups, unions, fraternal or athletic groups, or [...] Recorded Patient Health Questionnaire-2 Score 0 10/08/2024 [facility] - Occupational Stress Questionnaire Answer [...] place to sleep or slept in a assisted (including now)? No 11/25/2023 PHQ-9 Answer Date [...] Procedure Name Priority Date/Time Associated Diagnosis Comments DEXA BONE DENSITY 10/19/2024 10: 40 AM EDT documented in this encounter Results * Dexa Bone Density (10/19/2024 10:40 AM EDT) Anatomical Region Laterality Modality L-spine Radiographic Yumiko ging 10/19/2024 10:4 0 AM EDT Narrative 10/22/2024 8:07 [place] [address] Name: MENG SUN Exam Date: 10/19/2024 : 1950 Age 74 years Gender: F Physician: Yessica Murdock Facility: [facility] Facility HSV: Outpatient Exam: DEXA BONE DENSITY AX EXAMINATION: DUAL X-RAY ABSORPTIOMETRY (DXA) FOR BONE MINERAL DENSITY. CLINICAL INDICATION: 74 years old, Female. Postmenopausal. Z13.820. TECHNIQUE: An axial (e.g., hips, spine) and/or appendicular (e.g., radius) exam was performed, as appropriate, using Sodraft densitometer. Images are obtained for bone mineral density measurement and are not obtained for diagnostic purposes. [id number] COMPARISON: 01/17/2020. FINDINGS: Scan quality: Good. LUMBAR SPINE (L1-L4): BMD (in g/cm*2): 1.343. T-score: 1.2. Z-score: 2.9. Rate of change from previous exam: 4.9%. LEFT FEMORAL NECK: BMD (in g/cm*2): 0.842. T-score: -1.4. Z-score: 0.4. LEFT TOTAL HIP: BMD (in g/cm*2): 1.007. T-score: 0.0. Z-score: 1.6. Rate of change from previous exam: -7.9%. RIGHT FEMORAL NECK: BMD (in g/cm*2): 0.951. T-score: -0.6. Z-score: 1.2. RIGHT TOTAL HIP: BMD (in g/cm*2): 1.050. T-score: 0.3. Z-score: 2.0. No significant rate of change from previous exam. FRAX 10-YEAR PROBABILITY OF FRACTURE: 10-year fracture risk is performed using the [employer] FRAX calculator based on patient-reported risk factors. Major osteoporotic fracture: 9.2%. Hip fracture: 1.2%. IMPRESSION: Osteopenia based on BMD. World Health Organization criteria for BMD impression classify patients as: - Normal (T-score at or above -1.0). - Osteopenia (T-score between -1.0 and -2.5). - Osteoporosis (T-score at or below -2.5). Legally authenticated by BRITTON MATTHEWS 2024-10-19 13:22:21 Per the Bone Health and Osteoporosis Foundation the FRAX tool is most useful in patients with low femoral neck bone mineral density (osteopenia). FRAX is calculated per request. RECOMMENDATIONS: 1. All patients should optimize their calcium and vitamin D intake. 2. Consider FDA-approved medical therapies in postmenopausal women and men aged 50 years and older, based on the following: - A hip or vertebral (clinical or morphometric) fracture. - T-score less than or equal to -2.5 at the femoral neck or spine after appropriate evaluation to exclude secondary causes. - Low bone density (T-score between -1.0 and -2.5 at the femoral neck or spine) and a 10-year probability of a hip fracture greater than or equal to 3% or a 10-year probability of a major osteoporosis-related fracture greater than or equal to 20% based on FRAX calculation. - Clinician judgment and/or patient preferences may indicate treatment for people with 10-year fracture probabilities above or below these levels. - Further guidance on treatment can be found at the National Osteoporosis Foundation's website bonesource.org. 3. Patients with diagnosis of osteoporosis or at high risk for fracture should have regular bone mineral density tests. For patients eligible for Medicare, routine testing is allowed once every 2 years. The testing frequency can be increased to one year for patients who have rapidly progressing disease, those who are receiving or discontinuing medical therapy to restore bone mass or have additional risk factors. Electronically signed by: Mickey Moreira DO 10/22/2024 08:04 AM EDT Dictated By: Mickey Moreira Transcribed By: Transcribed On: 10/19/2024 1:22 PM Electronically signed by: Mickey Moreira 10/19/2024 Thank you for referring JEREDMENG ALONZO to [facility]. Legally authenticated by BRITTON MATTHEWS 2024-10-19 13:22:21 Procedure Note Provider, [facility] - 10/22/2024 [place] [address] Name: MENG SUN Exam Date: 10/19/2024 : 1950 Age 74 years Gender: F Physician: Yessica Murdock Facility: [facility] Facility HSV: Outpatient Exam: DEXA BONE DENSITY AX EXAMINATION: DUAL X-RAY ABSORPTIOMETRY (DXA) FOR BONE MINERAL DENSITY. CLINICAL INDICATION: 74 years old, Female. Postmenopausal. Z13.820. TECHNIQUE: An axial (e.g., hips, spine) and/or appendicular (e.g.,radius) exam was performed, as appropriate, using Sodraft densitometer.Images are obtained for bone mineral density measurement and are not obtainedfor diagnostic purposes. [id number] COMPARISON: 01/17/2020. FINDINGS: Scan quality: Good. LUMBAR SPINE (L1-L4): BMD (in g/cm*2): 1.343. T-score: 1.2. Z-score: 2.9. Rate of change from previous exam: 4.9%. LEFT FEMORAL NECK: BMD (in g/cm*2): 0.842. T-score: -1.4. Z-score: 0.4. LEFT TOTAL HIP: BMD (in g/cm*2): 1.007. T-score: 0.0. Z-score: 1.6. Rate of change from previous exam: -7.9%. RIGHT FEMORAL NECK: BMD (in g/cm*2): 0.951. T-score: -0.6. Z-score: 1.2. RIGHT TOTAL HIP: BMD (in g/cm*2): 1.050. T-score: 0.3. Z-score: 2.0. No significant rate of change from previous exam. FRAX 10-YEAR PROBABILITY OF FRACTURE: 10-year fracture risk is performed using the [employer]RA[employer] calculator based on patient-reported risk factors. Major osteoporotic fracture: 9.2%. Hip fracture: 1.2%. IMPRESSION: Osteopenia based on BMD. World Health Organization criteria for BMD impression classify patientsas: - Normal (T-score at or above -1.0). - Osteopenia (T-score between -1.0 and -2.5). - Osteoporosis (T-score at or below -2.5). Legally authenticated by BRITTON MATTHEWS 2024-10-19 13:22:21 Per the Bone Health and Osteoporosis Foundation the FRAX tool is mostuseful in patients with low femoral neck bone mineral density (osteopenia). FRAXis calculated per request. RECOMMENDATIONS: 1. All patients should optimize their calcium and vitamin D intake. 2. Consider FDA-approved medical therapies in postmenopausal women andmen aged 50 years and older, based on the following: - A hip or vertebral (clinical or morphometric) fracture. - T-score less than or equal to -2.5 at the femoral neck or spine after appropriate evaluation to exclude secondary causes. - Low bone density (T-score between -1.0 and -2.5 at the femoral neck or spine) and a 10-year probability of a hip fracture greater than or equalto 3% or a 10-year probability of a major osteoporosis-related fracture greaterthan or equal to 20% based on FRAX calculation. - Clinician judgment and/or patient preferences may indicate treatmentfor people with 10-year fracture probabilities above or below these levels. - Further guidance on treatment can be found at the NationalOsteoporosis Foundation's website bonesource.org. 3. Patients with diagnosis of osteoporosis or at high risk for fracture should have regular bone mineral density tests. For patients eligiblefor Medicare, routine testing is allowed once every 2 years. The testingfrequency can be increased to one year for patients who have rapidly progressing disease, those who are receiving or discontinuing medical therapy torestore bone mass or have additional risk factors. Electronically signed by: Mickey Moreira DO 10/22/2024 08:04 AM EDT RP Dictated By: Mickey Moreira Transcribed By: Transcribed On: 10/19/2024 1:22 PM Electronically signed by: Mickey Moreira 10/19/2024 Thank you for referring MENG SUN to [facility]. Legally authenticated by BRITTON MATTHEWS 2024-10-19 13:22:21 us Yessica Murdock MD IM DXA PROCEDURES Final Resu lt documented in this encounter Visit Diagnoses Not [...] documented as of this encounter Care Teams Biodiesel Production Technician Relationship Specialty Start Date End Date Yessica Murdock MD [facility] [place] [address] PCP - General 12/19/20 documented as of this encounter
--- OUTSIDE RECORDS SUMMARY | 2025-01-26 10:42 | XMS_ITS | Data Portability ---
Author Organization [place] - [facility] KATHERIN Patel ADMIN Address [address] [place] [id number] Care Team Providers Care Clerk General Office Name Role Phone LYUDMILA MURDOCK Primary Care Provider [phone] Assessment No assessment recorded. Plan of Treatment Reminders Order Date Submit Date Provider Last Modified By Organization Details Last Modified Time Details Appointments None recorded. Lab CBC w/ auto diff 2022 023 [facility], [address] [place], [address], 3 12:02:39 CMP, serum or plasma 2022 023 [facility], [address] [place], [address], 3 13:31:01 iron + total iron-bindin g capacity (TIBC), serum 2022 023 [email or web address], [address] [place], [address], 3 15:57:14 CBC w/ auto diff 2022 023 [facility], [address] [place], [address], 3 13:23:00 CMP, serum or plasma 2022 023 [facility], [address] [place], [address], 3 14:06:19 ldh, serum or plasma 2022 023 [facility] [address], [place], [address], 3 14:06:21 C-reactive protein, quantitativ e, serum or plasma 2022 023 [facility], [address], [place], [address], 3 12:13:50 ESR (erythrocyt e sedimentati on rate), blood 2022 023 [facility], [address], [place], [address], 3 12:13:50 iron + total iron-bindin g capacity (TIBC), serum 2022 023 [facility], [address], [place], [address], 3 12:13:50 jak2 (V617F) mutation, blood/tissu e 2022 023 [facility], [address], [place], [address], 3 12:13:50 genetic testing, PCR, blood or tissue [address] [facility], [address], [place], [address], 3 13:10:48 Referral gastroenter ologist referral - patient needs colonoscopy screening 2022 023 herb Berkowitz MD, [address], [address], [place], [address], 3 09:16:43 Procedures None recorded. Surgeries None recorded. Imaging electrocard iogram 2022 023 [facility], [address], [place], [address], 3 12:37:53 Medication Orders None recorded. Patient TargetsNo targets recorded. Patient InstructionsNo instructions recorded. Reason for Referral Safety Teacher Referral for Screening due patient needs colonoscopy screening Referring Physician: Radha Cardoso, Hematology/Oncology, Encounter Date: 12/09/2022 Results Created Date Observation Date Name Description Value Unit Range Abnormal Flag Note LastModifiedBy Organization Detail LastModifiedTime 12/10/19 23 12/09/2022 CBC AUTO W DIFF WBC 7.8 K/uL 4.0-10 .5 Not Available [facility] ([facility]) [address], [place], [address], 12/09/2022 13:23:00 12/10/19 23 12/09/2022 CBC AUTO W DIFF RBC 4.4 M/mm3 4.2-6. 4 Not Available [facility] ([facility]) [address], [place], [address], 12/09/2022 13:23:00 12/10/19 23 12/09/2022 CBC AUTO W DIFF HGB 12.5 gm/dL 12.5-1 6.0 Not Available [facility] ([facility]) [address], [place], [address], 12/09/2022 13:23:00 12/10/19 23 12/09/2022 CBC AUTO W DIFF HCT 38.2 % 37.0-4 7.0 Not Available [facility] ([facility]) [address], [place], [address], 12/09/2022 13:23:00 12/10/19 23 12/09/2022 CBC AUTO W DIFF MCV 86.8 fL 78-100 Not Available [facility] ([facility]) [address] [place], [address], 12/09/2022 13:23:00 12/10/19 23 12/09/2022 CBC AUTO W DIFF MCH 28.4 pg 27-31 Not Available [facility] ([facility]) [address] , [place], [address], 12/09/2022 13:23:00 12/10/19 23 12/09/2022 CBC AUTO W DIFF MCHC 32.7 g/dL 32-36 Not Available [facility] ([facility]) [address] , [place], [address], 12/09/2022 13:23:00 12/10/19 23 12/09/2022 CBC AUTO W DIFF RDW 14.6 % 11.5-1 4.0 high Not Available [facility] ([facility]) [address] , [place], [address], 12/09/2022 13:23:00 12/10/19 23 12/09/2022 CBC AUTO W DIFF platelet count 555 K/uL 150-45 0 high Not Available [facility] ([facility]) [address] [place], [address], 12/09/2022 13:23:00 12/10/19 23 12/09/2022 CBC AUTO W DIFF neutrophil% 64.2 % 43-65 Not Available [facility] ([facility]) [address] [place], [address], 12/09/2022 13:23:00 12/10/19 23 12/09/2022 CBC AUTO W DIFF lymphocyte% 23.8 % 20.5-4 5.5 Not Available [facility] ([facility]) [address] [place], [address], 12/09/2022 13:23:00 12/10/19 23 12/09/2022 CBC AUTO W DIFF monocyte% 9.5 % 5.5-11 .7 Not Available [facility] ([facility]) [address], [place], [address], 12/09/2022 13:23:00 12/10/19 23 12/09/2022 CBC AUTO W DIFF eosinophil% 1.9 % 0.9-2. 9 Not Available [facility] ([facility]) [address], [place], [address], 12/09/2022 13:23:00 12/10/19 23 12/09/2022 CBC AUTO W DIFF basophil% 0.6 % 0.2-1. 0 Not Available [facility] ([facility]) [address], [place], [address], 12/09/2022 13:23:00 12/10/19 23 12/09/2022 CBC AUTO W DIFF neutrophil# 5.0 K/uL 2.2-4. 8 high Not Available [facility] ([facility]) [address], [place], [address], 12/09/2022 13:23:00 12/10/19 23 12/09/2022 CBC AUTO W DIFF lymphocyte# 1.9 cell/ mcL 1.3-2. 9 Not Available [facility] ([facility]) [address], [place], [address], 12/09/2022 13:23:00 12/10/19 23 12/09/2022 CBC AUTO W DIFF monocyte# 0.7 cell/ mcL 0.3-0. 8 Not Available [facility] ([facility]) [address] [place], [address], 12/09/2022 13:23:00 12/10/19 23 12/09/2022 CBC AUTO W DIFF eosinophil# 0.2 cell/ mcL 0-0.2 Not Available [facility] ([facility]) [address] [place], [address], 12/09/2022 13:23:00 12/10/19 23 12/09/2022 CBC AUTO W DIFF basophil# 0.1 cell/ mcL 0.0-1. 0 Not Available [facility] ([facility]) [address], [place], [address], 12/09/2022 13:23:00 12/10/19 23 12/09/2022 CBC AUTO W DIFF manual differential NO Not Available [facility] ([facility]) [address], [place], [address], 12/09/2022 13:23:00 12/10/19 23 12/09/2022 SED RATE sed rate auto 41 0-20 high Not Available [facility] ([facility]) [address], [place], [address], 12/09/2022 13:35:39 12/10/19 23 12/09/2022 COMP METAB OLIC PANEL sodium 138 mmol/ L 136-14 5 Not Available [facility] ([facility]) [address], [place], [address], 12/09/2022 14:06:19 12/10/19 23 12/09/2022 COMP METAB OLIC PANEL potassium 4.4 mmol/ L 3.6-5. 0 Not Available [facility] ([facility]) [address], [place], [address], 12/09/2022 14:06:19 12/10/19 23 12/09/2022 COMP METAB OLIC PANEL chloride 101 mmol/ L 98-107 Not Available [facility] ([facility]) [address] [place], [address], 12/09/2022 14:06:19 12/10/19 23 12/09/2022 COMP METAB OLIC PANEL carbon dioxide 29.7 mmol/ L 21.0-3 2.0 Not Available [facility] ([facility]) [address] [place], [address], 12/09/2022 14:06:19 12/10/19 23 12/09/2022 COMP METAB OLIC PANEL anion gap 11.7 Not Available [facility] ([facility]) [address], [place], [address], 12/09/2022 14:06:19 12/10/19 23 12/09/2022 COMP METAB OLIC PANEL glucose 112 mg/dL 70-120 Not Available [facility] ([facility]) [address], [place], [address], 12/09/2022 14:06:19 12/10/19 23 12/09/2022 COMP METAB OLIC PANEL BUN 11 mg/dL 7-18 Not Available [facility] ([facility]) [address], [place], [address], 12/09/2022 14:06:19 12/10/19 23 12/09/2022 COMP METAB OLIC PANEL creatinine 0.7 mg/dL 0.6-1. 3 Not Available [facility] ([facility]) [address], [place], [address], 12/09/2022 14:06:19 12/10/19 23 12/09/2022 COMP METAB OLIC PANEL glomerular filtration rate TNP mlper min 60- TEST NOT PERFO RMED GFR has only been valid ated from 18 to 70 years of age. Not Available [facility] ([facility]) [address] , [place], [address], 12/09/2022 14:06:19 12/10/19 23 12/09/2022 COMP METAB OLIC PANEL total protein 8.0 g/dL 6.4-8. 2 Not Available [facility] ([facility]) [address], [place], [address], 12/09/2022 14:06:19 12/10/19 23 12/09/2022 COMP METAB OLIC PANEL albumin 3.4 g/dL 3.4-5. 0 Not Available [facility] ([facility]) [address], [place], [address], 12/09/2022 14:06:19 12/10/19 23 12/09/2022 COMP METAB OLIC PANEL globulin 4.6 Not Available [facility] ([facility]) [address], [place], [address], 12/09/2022 14:06:19 12/10/1912/09/2022 COMP METAB OLIC PANEL alb/glob ratio 0.7 0.7-2 Not Available [facility] ([facility]) [address] , [place], [address], 12/09/2022 14:06:19 12/10/1912/09/2022 COMP METAB OLIC PANEL calcium 9.3 mg/dL 8.5-10 .5 Not Available [facility] ([facility]) [address] , [place], [address], 12/09/2022 14:06:19 12/10/1912/09/2022 COMP METAB OLIC PANEL bilirubin total 0.40 mg/dL 0.10-1 .00 Not Available [facility] ([facility]) [address] , [place], [address], 12/09/2022 14:06:19 12/10/1912/09/2022 COMP METAB OLIC PANEL AST (SGOT) 14 U/L 0-37 Not Available [facility] ([facility]) [address] , [place], [address], 12/09/2022 14:06:19 12/10/1912/09/2022 COMP METAB OLIC PANEL ALT (SGPT) 26 U/L 0-65 Not Available [facility] ([facility]) [address] , [place], [address], 12/09/2022 14:06:19 12/10/19 23 12/09/2022 COMP METAB OLIC PANEL alk phosphatase 92 U/L 46-116 Not Available [facility] ([facility]) [address] [facility] [facility], [place], [address], 12/09/2022 14:06:19 12/10/19 23 12/09/2022 LDH (LD) LDH 139 U/L 0-190 Not Available [facility] ([facility]) [address] [facility], [place], [address], 12/09/2022 14:06:21 12/10/19 23 12/09/2022 C-MIKAYLA CTIVE PROTE IN (CRP) C-reactive protein, quant <0.2 mg/dL 0.0-0. 9 Not Available [facility] ([facility]) [address] [facility], [place], [address], 12/09/2022 14:06:22 12/10/19 23 12/09/2022 TOTAL IRON BIND CAP (TIBC ) TIBC 293 mcg/d L 250-45 0 Not Available [facility] ([facility]) [address] [facility], [place], [address], 12/09/2022 14:06:23 12/10/19 23 12/13/2022 JAK2 V617 MUTAT ION DETEC TION jak2 v617f mutation detection Commen t Resul t: NEGAT ASHLEY for the JAK2 V617F mutat ion. . Inter preta tion: The G to T nucle otide sena e encod ing the V617F mutat ion was not detec aristeo. This resul t does not rule out the prese nce of the JAK2 mutat ion at a level below the sensi tivit y of detec tion of this assay , or the prese nce of other mutat ions withi n JAK2 not detec aristeo by this assay . This resul t does not rule out a diagn osis of polyc ythem ia vera, essen tial throm bocyt hemia or idiop athic myelo fibro sis as the V617F mutat ion is not detec aristeo in all patie nts with these disor ders. . Not Available [facility] ([facility]) [address], [place], [address], 12/13/2022 19:09:19 12/10/19 23 12/13/2022 JAK2 V617 MUTAT ION DETEC TION director review Eyd Acosta, PhD, [facility] Direc tor, Molec ular Oncol o[facility] [place] [address] [phone] . This test was devel oped and its perfo rmanc e joaquin cteri stics deter mined by [facility]. It has not been clear ed or appro nick by the Food and Drug Admin istra tion. Perfo rmed at: [facility] [place] [address] [facility] [[email or web address]] [place], [place] [address] Lab Direc tor: Leo Mcmahon [facility] , Phone : [phone] Perfo rmed at: [facility] - [facility] [place] [address] , [place] [address] Lab Dire tor: Leo Mcmahon [facility] , Phone : [phone] Not Available [facility] ([facility]) [address], [place], [address], 12/13/2022 19:09:19 12/10/19 23 12/13/2022 JAK2 V617 MUTAT ION DETEC TION background Edy mitchell . JAK2 is a cytop lasmi c tyros ine kinas e with a coreas role in signa l trans ducti on from multi ple hemat opoie tic growt h facto r concierge receptionist tors. A point mutat ion withi n exon 14 of the JAK2 gene ([id number]) encod ing a valin e to pheny lalan ine subst ituti on at posit ion 617 of the JAK2 prote in (V617 F) has been ident ified in most patie nts with polyc ythem ia vera, and in about half of those with eithe r essen tial throm bocyt hemia or idiop athic myelo fibro sis. The V617F has also been detec aristeo, altho ugh infre quent ly, in other myelo id disor ders such as chron ic myelo monoc ytic [facility] pooja and chron ic neutr ophil ic lueke pooja. V617F is an acqui red mutat ion that alter s a highl y conse rved valin e prese nt in the negat ashley regul atory JH2 domai n of the JAK2 prote in and is predi cted to dysre gulat e kinas e activ ity. . Metho dolog y: Total genom ic DNA was extra cted and subje cted to TaqMa n real- time PCR ampli ficat ion/d etect ion. Two ampli ficat ion produ cts per sampl e were monit ored by real- time PCR using prime rs/pr obes speci fic to JAK2 wild type (WT) and JAK2 mutan t V617F . The ABI79 00 Absol diya Quant itati on softw are will nicky re the patie nt speci men valus e to the stand esvin curve s and gener ate perce nt value s for wild type and mutan t type. In vitro studi es have indic ated that this assay has an narda tical sensi tivit y of 1%. . Refer ences : Tali downs EJ, Bharat GARAY, Concetta gates PJ, et al. Acqui red mutat ion of the tyros ine kinas e JAK2 in human myelo proli ferat ashley disor ders. [place] t. 2004Oct 24 ; 365(6 286): 1054- 1061. Pepe Keating, Rodrick V, Le Coued ic MALORIE. A uniqu e clona l JAK2 mutat ion leadi ng to const ituti ve signa ling cause s polyc ythae pooja vera. Natur e. 2004Dec 03; 434(8 485): 1140- 1145. Teresa dickens R, Reji sood F, Adam , et al. A gain- of- funct ion mutat ion of JAK2 in myelo proli ferat ashley disor ders. N Engl J Med. 2004Dec 03; 352(1 7):17 79-17 90. Not Available [facility] ([facility]) [address] , [place], [address], 12/13/2022 19:09:19 02/01/20 23 01/31/2023 CBC AUTO W DIFF WBC 9.1 K/uL 4.0-10 .5 Not Available [facility] ([facility]) [address] , [place], [address], 01/31/2023 12:02:39 02/01/20 23 01/31/2023 CBC AUTO W DIFF RBC 4.5 M/mm3 4.2-6. 4 Not Available [facility] ([facility]) [address] , [place], [address], 01/31/2023 12:02:39 02/01/20 23 01/31/2023 CBC AUTO W DIFF HGB 13.2 gm/dL 12.5-1 6.0 Not Available [facility] ([facility]) [address] , [place], [address], 01/31/2023 12:02:39 02/01/20 23 01/31/2023 CBC AUTO W DIFF HCT 38.8 % 37.0-4 7.0 Not Available [facility] ([facility]) [address] , [place], [address], 01/31/2023 12:02:39 02/01/20 23 01/31/2023 CBC AUTO W DIFF MCV 86.0 fL 78-100 Not Available [facility] ([facility]) [address] , [place], [address], 01/31/2023 12:02:39 02/01/20 23 01/31/2023 CBC AUTO W DIFF MCH 29.3 pg 27-31 Not Available [facility] ([facility]) [address] , [place], [address], 01/31/2023 12:02:39 02/01/20 23 01/31/2023 CBC AUTO W DIFF MCHC 34.0 g/dL 32-36 Not Available [facility] ([facility]) [address] , [place], [address], 01/31/2023 12:02:39 02/01/20 23 01/31/2023 CBC AUTO W DIFF RDW 15.2 % 11.5-1 4.0 high Not Available [facility] ([facility]) [address], [place], [address], 01/31/2023 12:02:39 02/01/20 23 01/31/2023 CBC AUTO W DIFF platelet count 396 K/uL 150-45 0 Not Available [facility] ([facility]) [address], [place], [address], 01/31/2023 12:02:39 02/01/20 23 01/31/2023 CBC AUTO W DIFF neutrophil% 63.3 % 43-65 Not Available [facility] ([facility]) [address], [place], [address], 01/31/2023 12:02:39 02/01/20 23 01/31/2023 CBC AUTO W DIFF lymphocyte% 24.7 % 20.5-4 5.5 Not Available [facility] ([facility]) [address] [facility] [facility], [place], [address], 01/31/2023 12:02:39 02/01/20 23 01/31/2023 CBC AUTO W DIFF monocyte% 9.0 % 5.5-11 .7 Not Available [facility] ([facility]) [address] [place], [address], 01/31/2023 12:02:39 02/01/20 23 01/31/2023 CBC AUTO W DIFF eosinophil% 2.5 % 0.9-2. 9 Not Available [facility] ([facility]) [address] [place], [address], 01/31/2023 12:02:39 02/01/20 23 01/31/2023 CBC AUTO W DIFF basophil% 0.5 % 0.2-1. 0 Not Available [facility] ([facility]) [address], [place], [address], 01/31/2023 12:02:39 02/01/20 23 01/31/2023 CBC AUTO W DIFF neutrophil# 5.8 K/uL 2.2-4. 8 high Not Available [facility] ([facility]) [address] [facility], [place], [address], 01/31/2023 12:02:39 02/01/20 23 01/31/2023 CBC AUTO W DIFF lymphocyte# 2.3 cell/ mcL 1.3-2. 9 Not Available [facility] ([facility]) [address] [facility], [place], [address], 01/31/2023 12:02:39 02/01/20 23 01/31/2023 CBC AUTO W DIFF monocyte# 0.8 cell/ mcL 0.3-0. 8 Not Available [facility] ([facility]) [address] [facility], [place], [address], 01/31/2023 12:02:39 02/01/20 23 01/31/2023 CBC AUTO W DIFF eosinophil# 0.2 cell/ mcL 0-0.2 Not Available [facility] ([facility]) [address] [place], [address], 01/31/2023 12:02:39 02/01/20 23 01/31/2023 CBC AUTO W DIFF basophil# 0.1 cell/ mcL 0.0-1. 0 Not Available [facility] ([facility]) [address] [place], [address], 01/31/2023 12:02:39 02/01/20 23 01/31/2023 CBC AUTO W DIFF manual differential NO Not Available [facility] ([facility]) [address] , [place], [address], 01/31/2023 12:02:39 02/01/20 23 01/31/2023 IRON STUDY (IRON /TIBC /%SAT ) iron 52 mcg/m L 40-180 Not Available [facility] ([facility]) [address] , [place], [address], 01/31/2023 13:20:22 02/01/20 23 01/31/2023 IRON STUDY (IRON /TIBC /%SAT ) TIBC 287 mcg/d L 250-45 0 Not Available [facility] ([facility]) [address], [place], [address], 01/31/2023 13:20:22 02/01/20 23 01/31/2023 IRON STUDY (IRON /TIBC /%SAT ) %sat 18 15-55 Not Available [facility] ([facility]) [address], [place], [address], 01/31/2023 13:20:22 02/01/20 23 01/31/2023 COMP METAB OLIC PANEL sodium 140 mmol/ L 136-14 5 Not Available [facility] ([facility]) [address], [place], [address], 01/31/2023 13:31:01 02/01/20 23 01/31/2023 COMP METAB OLIC PANEL potassium 4.7 mmol/ L 3.6-5. 0 Not Available [facility] ([facility]) [address] [place], [address], 01/31/2023 13:31:01 02/01/20 23 01/31/2023 COMP METAB OLIC PANEL chloride 104 mmol/ L 98-107 Not Available [facility] ([facility]) [address] [place], [address], 01/31/2023 13:31:01 02/01/20 23 01/31/2023 COMP METAB OLIC PANEL carbon dioxide 29.6 mmol/ L 21.0-3 2.0 Not Available [facility] ([facility]) [address] , [place], [address], 01/31/2023 13:31:01 02/01/20 23 01/31/2023 COMP METAB OLIC PANEL anion gap 11.1 Not Available [facility] ([facility]) [address] , [place], [address], 01/31/2023 13:31:01 02/01/20 23 01/31/2023 COMP METAB OLIC PANEL glucose 112 mg/dL 70-120 Not Available [facility] ([facility]) [address] , [place], [address], 01/31/2023 13:31:01 02/01/20 23 01/31/2023 COMP METAB OLIC PANEL BUN 13 mg/dL 7-18 Not Available [facility] ([facility]) [address] , [place], [address], 01/31/2023 13:31:01 02/01/20 23 01/31/2023 COMP METAB OLIC PANEL creatinine 0.6 mg/dL 0.6-1. 3 Not Available [facility] ([facility]) [address] , [place], [address], 01/31/2023 13:31:01 02/01/20 23 01/31/2023 COMP METAB OLIC PANEL glomerular filtration rate TNP mlper min 60- TEST NOT PERFO RMED GFR has only been valid ated from 18 to 70 years of age. Not Available [facility] ([facility]) [address] , [place], [address], 01/31/2023 13:31:01 02/01/20 23 01/31/2023 COMP METAB OLIC PANEL total protein 7.7 g/dL 6.4-8. 2 Not Available [facility] ([facility]) [address], [place], [address], 01/31/2023 13:31:01 02/01/20 23 01/31/2023 COMP METAB OLIC PANEL albumin 3.4 g/dL 3.4-5. 0 Not Available [facility] ([facility]) [address], [place], [address], 01/31/2023 13:31:01 02/01/20 23 01/31/2023 COMP METAB OLIC PANEL globulin 4.3 Not Available [facility] ([facility]) [address], [place], [address], 01/31/2023 13:31:01 02/01/20 23 01/31/2023 COMP METAB OLIC PANEL alb/glob ratio 0.8 0.7-2 Not Available [facility] ([facility]) [address] , [place], [address], 01/31/2023 13:31:01 02/01/20 23 01/31/2023 COMP METAB OLIC PANEL calcium 9.2 mg/dL 8.5-10 .5 Not Available [facility] ([facility]) [address] , [place], [address], 01/31/2023 13:31:01 02/01/20 23 01/31/2023 COMP METAB OLIC PANEL bilirubin total 0.40 mg/dL 0.10-1 .00 Not Available [facility] ([facility]) [address] , [place], [address], 01/31/2023 13:31:01 02/01/20 23 01/31/2023 COMP METAB OLIC PANEL AST (SGOT) 13 U/L 0-37 Not Available [facility] ([facility]) [address] , [place], [address], 01/31/2023 13:31:01 02/01/20 23 01/31/2023 COMP METAB OLIC PANEL ALT (SGPT) 21 U/L 0-65 Not Available [facility] ([facility]) [address], [place], [address], 01/31/2023 13:31:01 02/01/20 23 01/31/2023 COMP METAB OLIC PANEL alk phosphatase 106 U/L 46-116 Not Available [facility] ([facility]) [address], [place], [address], 01/31/2023 13:31:01 12/04/19 23 12/03/2022 elect rocar diogr am No observ ation record ed. [facility] [address], [place], [address], 12/06/2022 11:00:57 12/09/19 23 12/03/2022 elect rocar diogr am No observ ation record ed. [facility] [address], [place], [address], 12/08/2022 15:06:21 Result Notes None recorded. Problems Name Problem SNOMED Code Status Onset Date Resolution Date Notes Provider Name and Address Organization Details Recorded Time Essential hypertension 29271699 Active 2022 Jason Vogel MD [address] [facility], [place], [address] , [place] - [facility] - [place] & [place] 3 11:34:05 Hyperlipidemia 75420506 Active 2022 Jason Vogel MD [address] [facility], [place], [address] , [place] - [facility] - [place] & [place] 3 11:34:18 Chest pain 32390606 Active 2022 Jason Vogel MD [address] [facility], [place], [address] , [place] - [facility] - [place] & [place] 3 11:34:37 Problem Notes None recorded. Medical Equipment None Reported. Allergies Allergen ID Allergen Name Allergen Category Reaction Reaction Severity Criticality Documentation Date Start Date Code Code System Note Provider Name and Address Organization Details Recorded Time 70062 acetamino phen / oxycodone medicatio n Not available Not available Not available 12/03/2022 06036 3 RxNorm Dorene epps SD Vivienne [facility] & [place] 3 11:14:33 Medications Name Sig Start Date Stop Date Status Note LastModified by Organization Details LastModified Time celecoxib 200 mg capsule Take 1 tablet daily active Not Available Not Available No t Available atorvastatin 10 mg tablet Take 1 tablet daily active Not Available Not Available No t Available lisinopril 20 mg tablet Take 1 tablet daily active Not Available Not Available No t Available aspirin 81 mg tablet,delaye d release Take 1 tablet every day by oral route. active Not Available Not Available No t Available buspirone 10 mg tablet active Not Available Not Available No t Available hydroxyzine HCl 25 mg tablet Take 1 tablet daily active Not Available Not Available No t Available amoxicillin 500 mg-potassium clavulanate 125 mg tablet TAKE 1 TABLET BY MOUTH EVERY 8 HOURS FOR 7 DAYS 12/09 completed Not Available Not Available Not Available Restasis 0.05 % eye drops in a dropperette active Not Available Not Available Not Available levocetirizin e 5 mg tablet Take 1 tablet daily active Not Available Not Available No t Available Vitals Date Recorded Body height Body mass index (BMI) Body weight Oxygen saturation Oxygen saturation in Arterial blood by Pulse oximetry Heart rate Systolic blood pressure Diastolic blood pressure Provider Name and Address Organization Details Last Updated DateTime 3 170.18 cm 29.3 kg/m2 91474.7 7 g 98 % 98 % 76 /min 124 mm[Hg] 76 mm[Hg] Dorene Palafox [facility] [place] 3 11:20:45 Date Recorded Body height Body mass index (BMI) Body weight Body temperature Oxygen saturation Oxygen saturation in Arterial blood by Pulse oximetry Heart rate Systolic blood pressure Diastolic blood pressure Provider Name and Address Organization Details Last Updated DateTime 3 170.18 cm 30 kg/m2 49707.0 2 g 98 [degF] 97 % 97 % 66 /min 112 mm[Hg] 54 mm[Hg] Tori PANDEY [facility] & [place] 3 10:06:18 Date Recorded Body height Body mass index (BMI) Body weight Body temperature Oxygen saturation Oxygen saturation in Arterial blood by Pulse oximetry Heart rate Systolic blood pressure Diastolic blood pressure Provider Name and Address Organization Details Last Updated DateTime 3 170.18 cm 29.6 kg/m2 81972.0 4 g 97.3 [degF] 97 % 97 % 62 /min 107 mm[Hg] 60 mm[Hg] Tori PANDEY [facility] & [place] 3 10:24:35 Social History None recorded. Functional Status Question Answer Note LastModified by Organizat ion Details LastModified Time Do you use any illicit or recreational drugs? No Information not available 12/03/2022 What is your level of alcohol consumption? None Information not available 12/03/2022 Mental Status None recorded. Family History Relationship Description Onset Age of this Age Resolved Age Notes LastModified by Organization Details LastModified Time Mother Diabetes mellitus [email or web address] Not available 2022 11:17:39 Brother Diabetes mellitus [email or web address] Not available 2022 11:17:39 Sister Diabetes mellitus [email or web address] Not available 2022 11:17:39 Notes:Mother,father and brot her positive for heart disease Medical History No medical history recorded. Gynecological HistoryNo gynecological history recorded. Obstetrics History GPAL:G 0 P 0 0 0 0 Immunizations Vaccine Type Date Status Note Provider Nam e and Address Organization Details Recorded Time Influenza, split virus, quadrivalent, preservative 4 completed Tori epps, JONI PANDEY [facility] & [place] 12/09/2022 10:06:26 zoster recombinant 0 completed Torimanda epps, JONI Palafox [facility] & [place] 12/09/2022 10:06:26 zoster recombinant 0 completed Torimanda epps, JONI PANDEY [facility] & [place] 12/09/2022 10:06:26 Influenza, high-dose, quadrivalent, PF 2 completed Torimanda epps, JONI - TRINYNT [facility] & [place] 12/09/2022 10:06:26 Influenza, high-dose, quadrivalent, PF 0 completed Tori Workman null, [place] - [facility] - [place] & [place] 12/09/2022 10:06:26 Tdap 0 completed Tori Workman null, [place] [facility] [place] [facility] [place] 12/09/2022 10:06:26 Pneumococcal conjugate PCV 13 0 completed Tori Workman null, [place] - [facility] [place] [facility] [place] 12/09/2022 10:06:26 Influenza, high-dose, trivalent, PF 8 completed Tori Workman null, [place] - [facility] [place] [facility] [place] 12/09/2022 10:06:26 Influenza, high-dose, trivalent, PF 9 completed Tori Workman null, [place] - [facility] [place] [facility] [place] 12/09/2022 10:06:26 influenza, seasonal, intradermal, preservative free 5 completed Tori Workman null, [place] - [facility] [place] [facility] [place] 12/09/2022 10:06:26 Influenza, split virus, quadrivalent, PF 7 completed Tori Workman null, [place] - [facility] [place] [facility] [place] 12/09/2022 10:06:26 Influenza, split virus, quadrivalent, PF 6 completed Tori Workman null, [place] - [facility] [place] & [place] 12/09/2022 10:06:26 Past Encounters Encounter ID Performer Location Encounter Start Date Encounter Closed Date Diagnosis/Indication Diagnosis SNOMED-CT Code Diagnosis ICD10 Code Diagnosis Note [id number] Jason Vogel MD [facility] [address] [place] [address] 12/03/2022 10:45:53 12/03/2022 12:37:53 Essential hypertension 06954996 I10 Continue current medication . Keep log Low-salt diet < 2 gm Na/day, Regular exercise Weight loss Hyperlipidemia 60986872 E78.5 Continue statin Low fat/carboh ydrate diet Increase exercise Lose weight Chest pain 51886043 R07. 9 atypical symptoms. Will clinically monitor for now. Will consider stress testing if recurrent episodes. The signs symptoms of angina were discussed with the patient and . She verbalized understand ing. Will re-evaluat e in 2 months or sooner if needed. [id number] Radha Cardoso PA-C [facility] [address] [place] [address] 12/09/2022 09:47:28 12/09/2022 10:42:38 Thrombocytosis 2052017 D75.839 Patient labs performed per her primary care provider on December 03, 2022 with white blood cell count 8.19. Red blood cell count 4.49. Hemoglobin 12.6 hematocrit 40. MCV 89. Normal MCH and MCHC. Platelet count 681,000. Normal differenti al. No evidence of chronic kidney disease. Normal liver enzymes. Denies any history of iron deficiency . Patient states she was recently hospitaliz ed with diverticul itis. She is feeling better and has recovered well. She states she is due for colonoscop y. Will refer for screening colonoscop y. Denies any recent steroid use. Denies any weight loss, fever, chills, or night sweats. Will order additional labs for further evaluation of thrombocyt osis. Will follow up with further recommenda tions. History of malignant neoplasm of breast 080370261 Z85.3 Patient was diagnosed with a stage IIA (T2N0M0) invasive ductal carcinoma of the right breast diagnosed in September 2011. Her primary tumor was 5 cm in maximum dimension, (pT2). Lymph nodes were negative. Her tumor was ER positive, NM positive, HER-2 negative, Grade III. She received a right mastectomy followed by 4 cycles of Adriamycin and Cytoxan and 7 cycles of 12 planned cycles of weekly Taxotere. Her Taxotere chemothera py was held due to profound fatigue. She was then started on letrozole which was associated with severe arthralgia s. Letrozole was then changed to Arimidex. Patient finished 5 years of AI therapy in May 2017. Patient states she is up-to-date on her mammogram and DEXA scan. Screening due 159632293 Z76.89 Patient states she is due for screening colonoscop y. Will refer to [facility] his tory of cancer of colon 657617740 Z80.0 Patient's father had colon cancer at age 69. Patient states she is due for colonoscop y. Will refer. Her mother had breast cancer in her 60s. Her mother then developed pancreatic cancer. Patient is unsure what age she developed pancreatic cancer. Discussed at testing due to family history of malignancy . Patient is agreeable. Will order [facility] today. Family his tory of malignant neoplasm of pancreas 119519955 Z80.0 Patient's father had colon cancer at age 69. Family his tory of breast cancer 135361363 Z80.3 Patient's mother had breast cancer in her 60s. Patient has personal history of left breast cancer was treated in 2011. patient states she is up-to-date on her mammogram and bone density scan. [id number] Radha Cardoso PA-C [facility] [address] [facility] [address] [place] [address] 01/31/2023 10:17:44 01/31/2023 11:01:59 Thrombocytosis 9164410 D75.839 Patient labs performed per her primary care provider on December 03, 2022 with white blood cell count 8.19. Red blood cell count 4.49. Hemoglobin 12.6 hematocrit 40. MCV 89. Normal MCH and MCHC. Platelet count 681,000. Normal differenti al. No evidence of chronic kidney disease. Normal liver enzymes. Denies any history of iron deficiency . Patient states she was recently hospitaliz ed with diverticul itis. She is feeling better and has recovered well. She states she is due for colonoscop y. Will refer for screening colonoscop y. Denies any recent steroid use. Denies any weight loss, fever, chills, or night sweats. Labs on December 09, 2022 with stable hemoglobin at 12.5. Platelet count 918257. Normal CRP. Elevated sed rate. Normal LDH. Negative RUTH 2. I ordered iron studies and TIBC but not performed per lab. 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 Patient refuses a referral to genetic counselor for further evaluation . Discussed patient should see genetic counselor for further evaluation but she refuses. Patient is doing well with no acute changes since previous visit. She is due for colonoscop y but she refused to have it done. Will order follow up labs for thrombocyt osis. Will follow up with further recommenda tions. History of malignant neoplasm of breast 949603870 Z85.3 Patient was diagnosed with a stage IIA (T2N0M0) invasive ductal carcinoma of the right breast diagnosed in September 2011. Her primary tumor was 5 cm in maximum dimension, (pT2). Lymph nodes were negative. Her tumor was ER positive, NM positive, HER-2 negative, Grade III. She received a right mastectomy followed by 4 cycles of Adriamycin and Cytoxan and 7 cycles of 12 planned cycles of weekly Taxotere. Her Taxotere chemothera py was held due to profound fatigue. She was then started on letrozole which was associated with severe arthralgia s. Letrozole was then changed to Arimidex. Patient finished 5 years of AI therapy in May 2017. Patient states she is up-to-date on her mammogram and DEXA scan. Screening due 619134677 Z76.89 Patient states she is due for screening colonoscop y. Referred patient to [facility] but she refused to have a colonoscop y. Family his tory of cancer of colon 070782154 Z80.0 Patient's father had colon cancer at age 69. Patient states she is due for colonoscop y. Will refer. Her mother had breast cancer in her 60s. Her mother then developed pancreatic cancer. Patient is unsure what age she developed pancreatic cancer. Discussed at testing due to family history of malignancy . Patient is agreeable. 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 Patient refuses a referral to genetic counselor for further evaluation . Discussed patient should see genetic counselor for further evaluation but she refuses. Family his tory of malignant neoplasm of pancreas 665225628 Z80.0 Patient's father had colon cancer at age 69. Family his tory of breast cancer 108727133 Z80.3 Patient's mother had breast cancer in her 60s. Patient has personal history of left breast cancer was treated in 2011. patient states she is up-to-date on her mammogram and bone density scan. Health Concerns Section Related Observation LastModified by Organization Detai ls LastModified Time None Recorded Concern Status LastModified by Organization Details LastModified Time None Recorded Advance Directives Directive None Recorded Payers Insurance Date Sequence Insurance Name Policy Number Policy Justice Covered Member ID Justice Member ID Guarantor Name 01/29/2023 1 [employer] (MEDICARE REPLACEMENT/ ADVANTAGE - PPO) Vanna Sun [id number] Vanna Sun Notes Date Note Type Note Provider Name and Address Organization Details Recorded Time 12/03/2022 text/html 72 F here for evaluation of cpRefer: Dr Murdock About 1 month ago while washing dishes, nausea, dizzy and ss chest pain- pressure, no radiation, resolved in 20 mins. 2nd episode similar symptoms. since then she is done fine with no further episodes.She is fairly active, limited by arthritis no exertional cp/sob.No shortness of breath, PND, orthopnea, peripheral edema, palpitations, presyncope, syncope H/o panic attacks+ HTN- well controlled+HLD- on statin+ Breast cancer- in remission EKG 12/03/22: NSR 70, poor R wave progression Jason Vogel MD [address] [facility], [place], [address], [facility] [place] & [place] 12/03/2022 11:43:06 12/09/2022 text/html 72-year-old male presents for evaluation of thrombocytosis. Patient labs performed per her primary care provider on December 03, 2022 with white blood cell count 8.19. Red blood cell count 4.49. Hemoglobin 12.6 hematocrit 40. MCV 89. Normal MCH and MCHC. Platelet count 681,000. Normal differential. No evidence of chronic kidney disease. Normal liver enzymes. Denies any history of iron deficiency. Patient states she was recently hospitalized with diverticulitis. She is feeling better and has recovered well. She states she is due for colonoscopy. Will refer for screening colonoscopy. Denies any recent steroid use. Denies any weight loss, fever, chills, or night sweats. Patient's father had colon cancer at age 69. Her mother had breast cancer in her 60s. Her mother then developed pancreatic cancer. Patient is unsure what age she developed pancreatic cancer. Discussed genetic testing due to family history of malignancy. Patient is agreeable. Patient has personal history of left breast cancer was treated in 2011. patient states she is up-to-date on her mammogram and bone density scan. Will order additional labs for further evaluation of thrombocytosis. Will follow up with further recommendations. Radha Cardoso PA-C [address], [place], [address], [facility] & [place] 12/09/2022 11:18:14 01/31/2023 text/html 72-year-old male presents for evaluation of thrombocytosis. Patient labs performed per her primary care provider on December 03, 2022 with white blood cell count 8.19. Red blood cell count 4.49. Hemoglobin 12.6 hematocrit 40. MCV 89. Normal MCH and MCHC. Platelet count 681,000. Normal differential. No evidence of chronic kidney disease. Normal liver enzymes. Denies any history of iron deficiency. Patient states she was recently hospitalized with diverticulitis. She is feeling better and has recovered well. She states she is due for colonoscopy. Will refer for screening colonoscopy. Denies any recent steroid use. Denies any weight loss, fever, chills, or night sweats. Patient's father had colon cancer at age 69. Her mother had breast cancer in her 60s. Her mother then developed pancreatic cancer. Patient is unsure what age she developed pancreatic cancer. Discussed genetic testing due to family history of malignancy. Patient is agreeable. Patient has personal history of left breast cancer was treated in 2011. Patient states she is up-to-date on her mammogram and bone density scan. Labs on December 09, 2022 with stable hemoglobin at 12.5. Platelet count 091094. Normal CRP. Elevated sed rate. Normal LDH. Negative RUTH 2. I ordered iron studies and TIBC but not performed per lab. 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 Patient refuses a referral to genetic counselor for further evaluation. Discussed patient should see genetic counselor for further evaluation but she refuses. Patient is doing well with no acute changes since previous visit. She is due for colonoscopy but she refused to have it done. Will order follow up labs for thrombocytosis. Will follow up with further recommendations. Radha Cardoso PA-C [address], [place], [address], [facility] & [place] 01/31/2023 11:37:56 OBGyn Episode No OBEpisode recorded.
--- OUTSIDE RECORDS SUMMARY | 2025-01-26 10:42 | XMS_ITS | Encounter Summary ---
Author Organization Healthcare Address [address] [place] [address] Care Team Providers Care Process Description Writer Name Role Phone Yessica Murdock MD Primary Care Provider [phone] Reason for Visit * Reason Comments Med Refill Encounter Details Date Type Department Care Team (Late st Contact Info) Description 12/02/2024 Refill [facility] [address] [place] [address] Yessica Murdock MD [address] [place] [address] Localized edema Social History Tobacco Use Types Packs/Day Years Used Date Smoking Tobacco: Former Cigarettes 1.5 20 1 2012 Smokeless Tobacco: Never Humiliation, Afraid, Rape, [...] week 01/11/2023 How often do you attend chur ch or moravian services? Never 01/11/2023 Do you belong to any clubs o r organizations such as spiritism groups, unions, fraternal or athletic groups, or [...] Recorded Patient Health Questionnaire-2 Score 0 10/08/2024 [facility] - Occupational Stress Questionnaire Answer Date Recorded [...] place to sleep or slept in a prison (including now)? No 11/25/2023 PHQ-9 Answer Date [...] encounter Miscellaneous Notes * Telephone Encounter - Janes Lopes, PharmD - 12/05/2024 8:59 AM EDT 1 medication(s) has been approved per protocol. documented in this encounter Plan of Treatment Not on file documented as of this encounter Visit Diagnoses Diagnosis Localized edema Edema documented in this encounter Additional Health Concerns Assessment Noted Time PHQ-9 Depression Total Score: 0 10/09/19 25 9:35 AM EST A fall risk assessment has been complete d for the patient 10/08/2024 9:35 AM EST A Body Mass Index follow-up plan has been documented for the patient 10/08/2024 10:19 AM EST documented as of this encounter Care Teams Process Description Writer Relationship Specialty Start Date End Date Yessica Murdock MD [address] [id number] PCP - General 12/19/20 documented as of this encounter
--- OUTSIDE RECORDS SUMMARY | 2025-01-26 10:42 | XMS_ITS | Clinical Summary ---
Author Organization Healthcare Address [address] [place] [address] Care Team Providers Care Insole Presser Name Role Phone Yessica Murdock MD Primary Care Provider [phone] Allergies Active Allergy Reactions Criticality Noted Date Comments Oxycodone-Acetaminophen Unknown - Patien t states they do not know rxn details Low 11/01/2014 Medications aspirin 81 MG EC tablet 0 Active atorvastatin (Lipitor) 10 MG tabletIndications:M ixed hyperlipidemia Take 1 tablet (10 mg) by mouth daily. 90 tablet 3 5 Active omeprazole (PriLOSEC) [address] capsuleIndications: Epigastric pain,Constipation, unspecified constipation type Take 1 capsule (40 mg) by mouth daily. Do not crush or chew. 90 capsule 2 5 Active lisinopril 20 MG tabletIndications:P rimary hypertension Take 1 tablet by mouth daily. 90 tablet 2 5 Active levocetirizine (Xyzal) 5 MG tabletIndications:N on-seasonal allergic rhinitis due to pollen Take 1 tablet by mouth every evening. 90 tablet 2 5 Active amitriptyline (Elavil) 25 MG tabletIndications:P rimary insomnia Take 1 tablet by mouth nightly. 90 tablet 2 5 Active triamterene-hydroch lorothiazide (Maxzide-25) 37.5-25 MG tabletIndications:L ocalized edema TAKE 1 TABLET BY MOUTH DAILY 90 tablet 2 5 Active Active Problems Problem Noted Date Diagnosed Date Essential hypertension 12/03/2022 Essential tremor 10/24/2018 Intermittent claudication 03/02/2017 Allergic rhinitis 09/15/2015 Diabetes mellitus, type 2 08/15/2015 Hyperlipidemia 08/14/2015 Arthralgia of multiple joints 11/02/2014 Depression 11/02/2014 Generalized anxiety disorder 11/02/2014 Encounters Date Type Department Care Team Description 12/02/2024 Refill [facility] [address] [place], [place] [address] Yessica Murdock MD Localized edema 11/21/2024 Refill [facility] [address] [place] [address] Yessica Murdock MD Primary insomnia 11/21/2024 Refill [facility] [address] [place] [address] Yessica Murdock MD Primary hypertension; Non-seasonal allergic rhinitis due to pollen from Last 3 Months Immunizations Immunization Administration Dates Next Due Influenza, high-dose, quadrivalent 05/26,05/29/2020,06/28/2019,06/09 Influenza, injectable, quadrivalent 05/20/2014 Influenza, injectable, quadr ivalent, preservative free 05/31/2017,06/03/2016 Influenza, seasonal, injectable 05/29/20 20,05/21/2015,05/20/2014,05/10,06/08/2012,05/06/2011 Influenza, seasonal, intrade rmal, preservative free 05/21/2015 Pneumococcal Conjugate PCV 13 06/12/2020 Pneumococcal Polysaccharide PPV23 06/08/2012 Tdap 02/12/2020 Zoster, Recombinant 03/31/2020,02/05/2020 Family History Medical History Relation Name Comments Breast cancer Other Relation Name Status Comments Other Social History Tobacco Use Types Packs/Day Years Used Date Smoking Tobacco: Former Cigarettes 1.5 20 1 3 - 2012 Smokeless Tobacco: Never Tobacco Cessation:Counseling Given: Not Answered Humiliation, Afraid, Rape, and Kick questionnair e [...] 01/11/2023 How often do you attend chur or yarsanism services? Never 01/11/2023 Do you belong to any clubs o r organizations such as alevism groups, unions, fraternal or athletic groups, or [...] Recorded Patient Health Questionnaire-2 Score 0 10/08/2024 [facility]ational Stress Questionnaire Answer [...] on file Sexual Orientation Not on file Last Filed Vital Signs Vital Sign Reading Time Taken Comments Blood Pressure 122/80 10/08/2024 9:33 AM EST Pulse 76 10/08/2024 9:33 AM EST Temperature 36.5 C (97.7 F) 10/08/2024 9:33 AM EST Respiratory Rate 14 10/08/2024 9:33 AM EST Oxygen Saturation 96% 10/08/2024 9:33 AM EST Inhaled Oxygen Concentration - - Weight 88 kg (194 lb) 10/08/2024 9:33 AM EST Height 170.2 cm (5' 7 ) 10/08/2024 9:33 AM EST Body Mass Index 30.38 10/08/2024 9:33 AM EST Plan of Treatment Health Maintenance Due Date Last Done Comments [facility]-Hepatitis C Screening 1950 [facility]-Infant/Child/Adol SDOH Screenings 1950 Diabetes: Dental Exam 1961 [facility]- SDOH Screenings 1969 [facility]-Adult SDOH Screenings 1969 CT Colonography 1996 Colonoscopy 1996 FIT-DNA 1996 FIT 1996 FOBT 1996 Sigmoidoscopy 1996 [facility]-Colorectal Cancer Screening 1996 [facility]-Breast Cancer Screening 2001 [id number] Vaccine ( season) 2024 [facility]-Lung Cancer Screening 10/18/20242023, 09/17/2022, 07/20/2021 [facility]-Diabetes: Hemoglobin A1C 04/07/202510/2024, 11/25/2023, 01/17/2023, Additional history exists [facility]-Influenza Vaccine (Season Ended) 2025 05/26/2022, 05/29/2020, 05/29/2020, Additional history exists [facility]-Pneumococcal Vaccine: 50+ Years (3 of 3 - PCV20 or PCV21) 06/12/2025 06/12/2020, 06/08/2012 [facility]-Depression Screening 10/08/2025 10/08/2024, 0310/2024 [facility]-Medicare Annual Wellness (AWV) 10/08/2025 10/08/2024, 01/17/2023 [facility]-RSV Vaccine: 60+ Years or (1 - 1-dose 75+ series) 2026 [facility]-Bone Density Scan 10/19/2026 10/19/2024 [facility]-DTaP,Tdap,and Td Vaccines (2 - Td or Tdap) 02/11/2030 02/12/2020 [facility]-Zoster Vaccines Completed 03/31/2020, [facility]-Obesity Intervention Completed 025, 10/08/2024, 05/10/2024, Additional history exists HPV Vaccines Aged Out No longer eligi ble based on patient's age to complete this topic [facility]-HIB Vaccines Aged Out No longer e ligible based on patient's age to complete this topic [facility]-Hepatitis A Vaccines Aged Out No longer eligible based on patient's age to complete this topic [facility]-IPV Vaccines Aged Out No longer e ligible based on patient's age to complete this topic [facility]-Rotavirus Vaccines Aged Out No lo nger eligible based on patient's age to complete this topic Procedures Procedure Name Priority Date/Time Associated Diagnosis Comments DEXA BONE DENSITY 10/19/2024 10: 40 AM EDT HEMOGLOBIN A1C Routine 10/08/2024 10:18 AM EST Type 2 diabetes mellitus without complication, without long-term current use of insulin ([facility]) CT CHEST LUNG CANCER SCREENING 10/19/2023 2:14 PM EDT from Last 3 Months or Most Recently Relevant to Health Maintenance Results * Dexa Bone Density (10/19/2024 10:40 AM EDT) Anatomical Region Laterality Modality L-spine Radiographic Yumiko ging 10/19/2024 10:4 0 AM EDT Narrative 10/22/2024 8:07 [place] [address] Name: MENG SUN Exam Date: 10/19/2024 : 1950 Age 74 years Gender: F Physician: Yessica Murdock Facility: [facility] Facility HSV: Outpatient Exam: DEXA BONE DENSITY AX EXAMINATION: DUAL X-RAY ABSORPTIOMETRY (DXA) FOR BONE MINERAL DENSITY. CLINICAL INDICATION: 74 years old, Female. Postmenopausal. Z13.820. TECHNIQUE: An axial (e.g., hips, spine) and/or appendicular (e.g., radius) exam was performed, as appropriate, using [employer] densitometer. Images are obtained for bone mineral [...] risk is performed using the [employer] FRAX calculator based on patient-reported risk factors. [...] Mickey Moreira 10/19/2024 Thank you for referring COBYMENG SUTTON to [facility]. Legally authenticated by BRITTON MATTHEWS 2024-10-19 13:22:21 Procedure Note Provider, [facility] - 10/22/2024 [place] [address] Name: MENG SUN Exam Date: 10/19/2024 : 1950 Age 74 years Gender: F Physician: Yessica Murdock Facility: [facility] Facility HSV: Outpatient Exam: DEXA BONE DENSITY AX EXAMINATION: DUAL X-RAY ABSORPTIOMETRY (DXA) FOR BONE MINERAL DENSITY. CLINICAL INDICATION: 74 years old, Female. Postmenopausal. Z13.820. TECHNIQUE: An axial (e.g., hips, spine) and/or appendicular (e.g.,radius) exam was performed, as appropriate, using [employer] densitometer.Images are obtained for bone mineral density [...] Thank you for referring MENG SUN to [facility]. Legally authenticated by BRITTON MATTHEWS 2024-10-19 13:22:21 us Yessica Murdock MD IMG DXA PROCEDURES Final Resu lt * (ABNORMAL) Hemoglobin A1c (10/08/2024 10:18 AM EST) Hemoglobin A1c 6.1(H) <5.7 % 10/08/2024 1:46 PM EST [facility] Blood Venous blood specimen / Unknown Venipuncture / Unknown 10/08/2024 10:18 AM EST 10/08/2024 10:18 AM EST Narrative [facility] - 10/08/2024 1:46 PM EST HA1C Interpretive Data: Diagnosis of Diabetes: Diabetic > or = 6.5% Pre-diabetic 5.7 to 6.4% Non-diabetic < or = 5.6% Glycemic Targets for Type I and Type II Diabetics: Non- Adults <7.0% Adults <6.0% Children and Adolescents <7.5% Source: [place] [employer]. Standards of medical care in diabetes,2017. Diabetes Care.2017:40 (suppl 1):S1-S135. HbA1c assay performed by an ion-exchange chromatography method that is certified traceable to the DCCT. us Yessica Murdock MD LAB BLOOD ORDERABLES Final Re sult [facility] [address] [phone] * CT Chest Lung Cancer Screening (10/19/2023 2:14 PM EDT) Anatomical Region Laterality Modality Chest Computed Tomogra phy 10/19/2023 2:14 PM EDT Narrative 10/19/2023 3:30 [place] [address] Name: MENG SUN Exam Date: 10/19/2023 : 1950 Age 73 years Gender: F Physician: Yessica Murdock Facility: [facility] Facility HSV: Outpatient Exam: CT LOW DOSE LUNG SCREENING CT SCAN OF THE CHEST WITHOUT CONTRAST SCREENING PROTOCOL COMPARISON: 07/20/2021 HISTORY: [id number] smoking history in a patient who quit [...] Thank you for referring MENG SUN to [facility]. Legally authenticated by STACEY SUÁREZ 2023-10-19 15:04:43 Procedure Note Provider, [facility] [place] [facility] - 10/19/[address] [address] Name: MENG SUN Exam Date: 10/19/2023 : 1950 Age 73 years Gender: F Physician: Yessica Murdock Facility: [facility] Facility HSV: Outpatient Exam: CT LOW DOSE LUNG SCREENING CT SCAN OF THE CHEST WITHOUT CONTRAST SCREENING PROTOCOL COMPARISON: 07/20/2021 HISTORY: [id number] smoking history in a patient who quit [...] Thank you for referring MENG SUN to [facility]. Legally authenticated by STACEY SUÁREZ 2023-10-19 15:04:43 Yessica Murdock MD IMG CT PROCEDURES Final Resul t from Last 3 Months or Most Recently Relevant to Health [place] [address] [place] [address] [employer] Care Teams Insole Presser Relationship Specialty Start Date End Date Yessica Murdock MD [facility] [place] [address] PCP - General 12/19/20
[2025-01-26] MEDS: LACTATED RINGERS 1000ML 1,000 ML 999 ML IV (10:47)
[2025-01-26] MEDS: ONDANSETRON 4MG/2ML VIAL 4 MG IV ×2 (10:48→17:05)
[2025-01-26] MEDS: MORPHINE 4MG/ML SYRINGE 4 MG IV (10:50)
[2025-01-26 10:52] LABS: Basophils # 0.1 K/mm3 (0-0.2); Basophils % 0.5 % (0.1-2.0); Eosinophils # 0.1 Kmm3 (0.0-0.4); Eosinophils % 0.5 % (0.1-12.0); Hematocrit 39.4 % (37.0-47.0); Hemoglobin 13.2 g/dL (12.2-16.2); Immature Granulocytes # 0.07 10^3uL; Immature Granulocytes % 0.5 %; Lymphocytes # 1.5 K/mm3 (0.7-4.5); Mean Corpuscular HGB Conc 33.5 g/dL (31.8-35.4); Mean Corpuscular Hemoglobin 29.3 pg (27.0-31.2); Mean Corpuscular Volume 87.4 fl (81-99); Mean Platelet Volume 8.5 fl (7.4-10.4); Monocytes # 1.3 K/mm3 (0.1-1.0); Monocytes % 8.3 % (1.7-9.3); Neutrophils # 12.2 K/mm3 (1.8-7.8); Neutrophils % 80.2 % (37.0-80.0); Nucleated Red Blood Cells # 0 10^3/uL; Nucleated Red Blood Cells % 0 %; Platelet Count 426 K/mm3 (142-424); Red Blood Count 4.51 M/mm3 (4.20-5.40); White Blood Count 15.2 K/mm3 (4.8-10.8)
[2025-01-26 10:52] LABS: Microscopic, Urine URINE MICROSCOPIC (MICROSCOPIC)
[2025-01-26 11:12] LABS: Albumin Level 4.3 g/dl (3.5-5.0); Chloride 102 mmol/L (98-107); Sodium 137 mmol/L (136-145)
[2025-01-26 11:13] LABS: Potassium 3.8 mmoL/L (3.5-5.1)
[2025-01-26 11:15] LABS: Alanine Aminotransferase 23 U/L (12-78); Albumin/Globulin Ratio 1.1 (1.1-1.8); Alkaline Phosphatase 109 U/L (38-126); Anion Gap 7.8 mEq/L (5-15); Aspartate Amino Transferase 25 U/L (14-36); Bilirubin,Total 0.6 mg/dl (0.2-1.3); Blood Urea Nitrogen 15 mg/dl (7-17); Calcium 9.1 mg/dl (8.4-10.2); Carbon Dioxide 31 mmol/L (22.0-30.0); Creatinine Clearance Estimated 69 mL/min (50-200); Estimated Glomerular Filt Rate 82 ml/min (>60); GFR (African American) 99 ML/MIN (>60); Globulin 3.8 g/dL (1.3-3.2); Glucose 157 mg/dl (74-100); Lipase 33 U/L (23-300); Total Protein,Serum 8.1 g/dl (6.3-8.2)
[2025-01-26 11:16] LABS: Magnesium 3.6 mg/dl (1.6-2.3)
[2025-01-26 11:41] LABS: Appearance,Urine CLEAR (Clear); Bilirubin,Urine Negative (Negative); Blood, Urine Negative (Negative); Color,Urine YELLOW (Yellow); Glucose,Urine (UA) Negative (Negative); Ketones,Urine Negative (Negative); Leukocyte Esterase,Urine TRACE (Negative); Nitrate,Urine Negative (Negative); Protein,Urine TRACE (Negative); Specific Gravity, Urine 1.025 (1.005-1.030); Urobilinogen,Urine 0.2 EU/dl (0.2)
[2025-01-26] MEDS: SODIUM CHLORIDE 0.9% 10ML SYR (RAD ONLY) 10 ML IV (11:49)
[2025-01-26] MEDS: IOPAMIDOL-370 (76%);100ML BOTTLE 75 ML IV (11:49)
--- NOTE | 2025-01-26 11:56 | PC.NURSE ---
Surgeon customs and border protection officer paged for
--- NOTE | 2025-01-26 11:57 | PC.NURSE ---
is speaking with at this time.
[2025-01-26] MEDS: PIPERACILLIN/TAZO 4.5 GM in 0.9 % SODIUM CHLORIDE 100 ML IV ×3 (12:00→23:55)
[2025-01-26 12:16] LABS: Bacteria,Urine Trace /lpf; Squamous Epithelial Cell,Urine Occasional #/hpf (0-5); WBC,Urine Occasional #/hpf (0-3)
[2025-01-26 12:25] LABS: HIV Combo NEGATIVE (Negative)
[2025-01-26 12:32] LABS: Hepatitis C Ab Qual. W/ RFX NEGATIVE (Negative)
--- NOTE | 2025-01-26 12:45 | PC.NURSE ---
bedside talking with the pt
--- NOTE | 2025-01-26 12:54 | PC.NURSE ---
Dr. Fisher spoke to about admitting for obs. is calling to speak to the hospitalist about admission
--- NOTE | 2025-01-26 13:06 | PC.NURSE ---
HS notified of the need for a bed to admit.
[2025-01-26] MEDS: ACETAMINOPHEN 1,000MG/100ML VIAL 1000 MG IV (13:10)
--- NOTE | 2025-01-26 13:12 | PC.NURSE ---
Report called to Danielle DAVIS by RN
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
--- NOTE | 2025-01-26 13:25 | PC.NURSE ---
arrived by w/c from ED
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
--- NOTE | 2025-01-26 17:16 | PC.NURSE ---
Pt is A&Ox4. Vital signs stable tolerating room air. Pt complains of nausea. PRN zofran given per OCT. IV abx infusing per OCT. Pt tolerated some full liquid's on her dinner tray. No BM this shift thus far. Pt resting comfortably supine in bed with no further needs voiced at this time. Call light within reach.
[2025-01-26] MEDS: LACTATED RINGERS 1000ML 1,000 ML 75 ML IV (20:00)
[2025-01-26] MEDS: PANTOPRAZOLE 40MG TABLET 40 MG PO (21:50)
[2025-01-26] MEDS: AMITRIPTYLINE 25MG TABLET 25 MG PO (21:50)
[2025-01-27] MEDS: ACETAMINOPHEN 325MG TAB 650 MG PO (01:54)
[2025-01-27 04:00] VITALS: BP 147/68; PULSE 90; RESP 14; TEMP 36.9; O2SAT 96; BMI 30.6
--- NOTE | 2025-01-27 04:30 | PC.NURSE ---
Pt stated she had multiple bowel movements. Pt tolerated IV ABX. v/s, ox4. No acute events to report. Plan of care ongoing.
--- NOTE | 2025-01-27 05:21 | PC.NURSE ---
Pt given ice water.
--- NOTE | 2025-01-27 06:31 | PC.NURSE ---
pt refused insulin, stated she takes ozempic. Pt's bg was 166. charge nurse notified.
[2025-01-27 06:34] LABS: Basophils # 0.1 K/mm3 (0-0.2); Basophils % 0.6 % (0.1-2.0); Eosinophils # 0.3 Kmm3 (0.0-0.4); Eosinophils % 2.3 % (0.1-12.0); Hematocrit 37.8 % (37.0-47.0); Hemoglobin 12.6 g/dL (12.2-16.2); Immature Granulocytes # 0.07 10^3uL; Immature Granulocytes % 0.6 %; Lymphocytes # 2.1 K/mm3 (0.7-4.5); Lymphocytes % 17.2 % (10-50); Mean Corpuscular HGB Conc 33.3 g/dL (31.8-35.4); Mean Corpuscular Hemoglobin 29.7 pg (27.0-31.2); Mean Corpuscular Volume 89.2 fl (81-99); Mean Platelet Volume 8.4 fl (7.4-10.4); Monocytes # 1.2 K/mm3 (0.1-1.0); Monocytes % 9.2 % (1.7-9.3); Neutrophils # 8.7 K/mm3 (1.8-7.8); Neutrophils % 70.1 % (37.0-80.0); Nucleated Red Blood Cells # 0 10^3/uL; Nucleated Red Blood Cells % 0 %; Platelet Count 407 K/mm3 (142-424); Red Blood Count 4.24 M/mm3 (4.20-5.40); Red Cell Distribution Width 14.4 % (11.5-17.5); Red Cell Distribution Width-SD 46.3 fL; White Blood Count 12.5 K/mm3 (4.8-10.8)
[2025-01-27 06:36] LABS: Albumin Level 4.2 g/dl (3.5-5.0); Chloride 98 mmol/L (98-107); Potassium 4.1 mmoL/L (3.5-5.1); Sodium 135 mmol/L (136-145)
[2025-01-27] MEDS: ONDANSETRON 4MG/2ML VIAL 4 MG IV (06:37)
[2025-01-27] MEDS: PIPERACILLIN/TAZO 4.5 GM in 0.9 % SODIUM CHLORIDE 100 ML IV (06:37)
[2025-01-27 06:39] LABS: Alanine Aminotransferase 21 U/L (12-78); Albumin/Globulin Ratio 1.2 (1.1-1.8); Alkaline Phosphatase 89 U/L (38-126); Anion Gap 12.1 mEq/L (5-15); Aspartate Amino Transferase 29 U/L (14-36); Bilirubin,Total 0.6 mg/dl (0.2-1.3); Blood Urea Nitrogen 11 mg/dl (7-17); Calcium 8.9 mg/dl (8.4-10.2); Carbon Dioxide 29 mmol/L (22.0-30.0); Creatinine Clearance Estimated 70 mL/min (50-200); Estimated Glomerular Filt Rate 70 ml/min (>60); GFR (African American) 85 ML/MIN (>60); Globulin 3.5 g/dL (1.3-3.2); Glucose 136 mg/dl (74-100); Magnesium 2.6 mg/dl (1.6-2.3); Total Protein,Serum 7.7 g/dl (6.3-8.2)
[2025-01-27 07:35] VITALS: BP 134/68; PULSE 88; RESP 16; TEMP 36.6; O2SAT 96
[2025-01-27] MEDS: ASPIRIN EC 81MG TABLET 81 MG PO (09:01)
[2025-01-27] MEDS: LISINOPRIL 20MG TABLET 20 MG PO (09:01)
[2025-01-27] MEDS: ENOXAPARIN 40MG/0.4ML SYRINGE 40 MG SUBCUT (09:02)
--- NOTE | 2025-01-27 09:20 | P.PN_ITS ---
Subjective Patient reports: pain is less and bowel movement Narrative: Doing better. Tolerated full liquids. Emphatically wanting to go home MARTINE. Had slight nausea this am, which she attributes to being stressed out from being in the hospital . Multiple loose BM through the night into this am. Exam Data for Last 24 hours Vital signs and Labs for Last 24 Hours: Temp Pulse Resp BP Pulse Ox O2 Del Method 98 F 88 16 134/68 96 Room Air 01/27/25 07:35 01/27/25 07:35 01/27/25 07:35 01/27/25 07:35 01/27/25 07:35 01/27/25 06:48 Laboratory Results - last 24 hr 01/26/25 10:40: WBC 15.2 H, RBC 4.51, Hgb 13.2, Hct 39.4, MCV 87.4, MCH 29.3, MCHC 33.5, RDW 14.0, Plt Count 426 H, MPV 8.5, Neut % (Auto) 80.2 H, Lymph % (Auto) 10.0, [place] % (Auto) 8.3, Eos % (Auto) 0.5, Baso % (Auto) 0.5, Neut # (Auto) 12.2 H, Lymph # (Auto) 1.5, [place] # (Auto) 1.3 H, Eos # (Auto) 0.1, Baso # (Auto) 0.1, Sodium 137, Potassium 3.8, Chloride 102, Carbon Dioxide 31 H, Anion Gap 7.8, BUN 15, Creatinine 0.70, Estimated Creat Clear 69, Estimated GFR 82, Est GFR ( Amer) 99, Glucose 157 H, Calcium 9.1, Magnesium 3.6 H, Total Bilirubin 0.6, AST 25, ALT 23, Alkaline Phosphatase 109, Total Protein 8.1, Albumin 4.3, Globulin 3.8 H, Albumin/Globulin Ratio 1.1, Lipase 33, HCV Ab TETO w/Rflx PCR Qn Negative 01/26/25 10:42: Urine Color Yellow, Urine Appearance Clear, Urine pH 7.0, Ur Specific [place] 1.025, Urine Protein Trace, Urine Glucose (UA) Negative, Urine Ketones Negative, Urine Blood Negative, Urine Nitrate Negative, Urine Bilirubin Negative, Urine Urobilinogen 0.2, Ur Leukocyte Esterase Trace, Urine RBC None, Urine WBC Occasional, Ur Squamous Epith Cells Occasional, Urine Bacteria Trace 01/26/25 : HIV Ag/Ab Combo Qual Negative 01/27/25 06:25: WBC 12.5 H, RBC 4.24, Hgb 12.6, Hct 37.8, MCV 89.2, MCH 29.7, MCHC 33.3, RDW 14.4, Plt Count 407, MPV 8.4, Neut % (Auto) 70.1, Lymph % (Auto) 17.2, [place] % (Auto) 9.2, Eos % (Auto) 2.3, Baso % (Auto) 0.6, Neut # (Auto) 8.7 H, Lymph # (Auto) 2.1, [place] # (Auto) 1.2 H, Eos # (Auto) 0.3, Baso # (Auto) 0.1, Sodium 135 L, Potassium 4.1, Chloride 98, Carbon Dioxide 29, Anion Gap 12.1, BUN 11 D, Creatinine 0.80, Estimated Creat Clear 70, Estimated GFR 70, Est GFR ( Amer) 85, Glucose 136 H, Calcium 8.9, Magnesium 2.6 H D, Total Bilirubin 0.6, AST 29, ALT 21, Alkaline Phosphatase 89, Total Protein 7.7, Albumin 4.2, Globulin 3.5 H, Albumin/Globulin Ratio 1.2 I & O for Last 24 hours: Intake & Output 01/24/25 01/25/25 01/26/25 01/27/25 23:59 23:59 23:59 23:59 Intake Total 240 / 360 360 / 360 Output Total 0 / 0 400 / 400 Balance 240 / 360 -40 / -40 Weight 90.265 kg 88.451 kg Constitutional Constitutional: no acute distress and obese *Routine Respiratory Exam Respiratory: Present normal respiratory effort and able to speak in complete sentences *Routine Cardiovascular Exam Cardiovascular: Present RRR *Routine Abdominal Exam Abdominal: Present soft Comments: Slight tympani, but much improved tenderness from yesterday. No/minimal LLQ tenderness to deep palpation. Progress Note: A&P Assessment and plan (1) Diverticulitis: Status: Acute Assessment and Plan Assessment and Plan for All Diagnoses:: Exam is non-surgical. WBC improving. Other labs not worrisome. Magnesium improving. Advance to low residue diet. Anticipate likely discharge to home today with PO abx x 7 days. Will need c-scope at some point for direct visualization and to rule out otherwise pathology. Similarly, she will need trans-vaginal ultrasound as outpatient d/t endometrial thickening. I recommend low-residue diet x 6 weeks duration as well.
--- NOTE | 2025-01-27 10:30 | EXP.DC.SUM ---
General Admission date:: 01/26/25 HPI HPI HPI: Vanna Wang is a 74-year-old female with a medical history significant for constipation, hypertension, GERD presents with a few day onset of no bowel movements, abdominal distention, nausea. She states she normally has constipation that requires milk of magnesium every other day for regularity. However, over the past 2 days patient states she has not had a bowel movement except for light liquid this morning. Not passing gas over the past 2 days either. She also endorses left lower quadrant abdominal pain. Denies urinary symptoms, fever/chills, chest pain, shortness of breath. She states she has doubled up on her milk of magnesium over the past 2 days still without significant bowel movement. She has a history of ventral hernia repair with mesh. CT abdomen/pelvis revealed dilated fluid-filled cecum and transverse colon and sigmoid diverticulitis. WBC 15.2 magnesium 3.6. General surgery was consulted and has low suspicion for obstruction. As such, decision was made to admit patient for acute diverticulitis. Hospital Course Hospital Course Hospital Course: Vanna Wang is a 74-year-old female with a medical history significant for constipation, hypertension, GERD presents with a few day onset of no bowel movements, abdominal distention, nausea. She states she normally has constipation that requires milk of magnesium every other day for regularity. However, over the past 2 days patient states she has not had a bowel movement except for light liquid this morning. Not passing gas over the past 2 days either. She also endorses left lower quadrant abdominal pain. Denies urinary symptoms, fever/chills, chest pain, shortness of breath. She states she has doubled up on her milk of magnesium over the past 2 days still without significant bowel movement. She has a history of ventral hernia repair with mesh. CT abdomen/pelvis revealed dilated fluid-filled cecum and transverse colon and sigmoid diverticulitis. WBC 15.2 magnesium 3.6. General surgery was consulted and has low suspicion for obstruction. As such, decision was made to admit patient for acute diverticulitis. #Acute diverticulitis #Dilated cecum, transverse colon ? Presented with minimal bowel movements, abdominal distention, nausea over the past few days. CT abdomen shows diverticulitis, but no obstruction. General surgery consulted, agreed with diverticulitis and no obstruction. ? Clinically improved with IV Zosyn for 1 day. Has had multiple bowel movements overnight. Leukocytosis also improved, no signs of sepsis. ? Will follow-up with GI at [facility] for colonoscopy in 6 weeks. ? Discharged with levofloxacin, metronidazole for 9 more days. #Hypomagnesemia #Constipation ? In the setting of using medical magnesium for constipation. Continuous cardiac telemetry. Initially 3.6, improved to 2.6. ? Advised to use MiraLAX instead of milk of magnesium. #Hypertension ? Continue home lisinopril 40 mg. Renal function stable. #GERD ? Continue home PPI. Exam Data for Last 24 hours Vital signs and Labs for Last 24 Hours: Temp Pulse Resp BP Pulse Ox O2 Del Method 98 F 88 16 134/68 96 Room Air 01/27/25 07:35 01/27/25 07:35 01/27/25 07:35 01/27/25 07:35 01/27/25 07:35 01/27/25 09:00 Laboratory Results - last 24 hr 01/26/25 10:40: WBC 15.2 H, RBC 4.51, Hgb 13.2, Hct 39.4, MCV 87.4, MCH 29.3, MCHC 33.5, RDW 14.0, Plt Count 426 H, MPV 8.5, Neut % (Auto) 80.2 H, Lymph % (Auto) 10.0, [place] % (Auto) 8.3, Eos % (Auto) 0.5, Baso % (Auto) 0.5, Neut # (Auto) 12.2 H, Lymph # (Auto) 1.5, [place] # (Auto) 1.3 H, Eos # (Auto) 0.1, Baso # (Auto) 0.1, Sodium 137, Potassium 3.8, Chloride 102, Carbon Dioxide 31 H, Anion Gap 7.8, BUN 15, Creatinine 0.70, Estimated Creat Clear 69, Estimated GFR 82, Est GFR ( Amer) 99, Glucose 157 H, Calcium 9.1, Magnesium 3.6 H, Total Bilirubin 0.6, AST 25, ALT 23, Alkaline Phosphatase 109, Total Protein 8.1, Albumin 4.3, Globulin 3.8 H, Albumin/Globulin Ratio 1.1, Lipase 33, HCV Ab TETO w/Rflx PCR Qn Negative 01/26/25 10:42: Urine Color Yellow, Urine Appearance Clear, Urine pH 7.0, Ur Specific [place] 1.025, Urine Protein Trace, Urine Glucose (UA) Negative, Urine Ketones Negative, Urine Blood Negative, Urine Nitrate Negative, Urine Bilirubin Negative, Urine Urobilinogen 0.2, Ur Leukocyte Esterase Trace, Urine RBC None, Urine WBC Occasional, Ur Squamous Epith Cells Occasional, Urine Bacteria Trace 01/26/25 : HIV Ag/Ab Combo Qual Negative 01/27/25 06:25: WBC 12.5 H, RBC 4.24, Hgb 12.6, Hct 37.8, MCV 89.2, MCH 29.7, MCHC 33.3, RDW 14.4, Plt Count 407, MPV 8.4, Neut % (Auto) 70.1, Lymph % (Auto) 17.2, [place] % (Auto) 9.2, Eos % (Auto) 2.3, Baso % (Auto) 0.6, Neut # (Auto) 8.7 H, Lymph # (Auto) 2.1, [place] # (Auto) 1.2 H, Eos # (Auto) 0.3, Baso # (Auto) 0.1, Sodium 135 L, Potassium 4.1, Chloride 98, Carbon Dioxide 29, Anion Gap 12.1, BUN 11 D, Creatinine 0.80, Estimated Creat Clear 70, Estimated GFR 70, Est GFR ( Amer) 85, Glucose 136 H, Calcium 8.9, Magnesium 2.6 H D, Total Bilirubin 0.6, AST 29, ALT 21, Alkaline Phosphatase 89, Total Protein 7.7, Albumin 4.2, Globulin 3.5 H, Albumin/Globulin Ratio 1.2 I & O for Last 24 hours: Intake & Output 01/24/25 01/25/25 01/26/25 01/27/25 23:59 23:59 23:59 23:59 Intake Total 240 / 360 360 / 360 Output Total 0 / 0 400 / 400 Balance 240 / 360 -40 / -40 Weight 90.265 kg 88.451 kg Constitutional Constitutional: no acute distress *Routine HEENT Exam Head: Present normocephalic Eye: Present EOMI and PERRL ENT: Present mucous membranes moist *Routine Neck Exam Neck: Present supple; Absent lymphadenopathy *Routine Respiratory Exam Respiratory: Present CTA bilaterally *Routine Cardiovascular Exam Cardiovascular: Present RRR *Routine Abdominal Exam Abdominal: Present soft, normoactive bowel sounds and distended; Absent tenderness *Routine Extremities Exam Extremities: Absent cyanosis, clubbing or edema *Routine Skin Exam Skin: Present warm; Absent rash *Routine Neurological Exam Neurological: Present alert and oriented X3 Results Data Completed and Pending Labs on day of discharge: Labs from last 24 hours 01/27/25 01/26/25 01/26/25 06:25 Unknown 10:42 WBC 12.5 H RBC 4.24 Hgb 12.6 Hct 37.8 MCV 89.2 MCH 29.7 MCHC 33.3 RDW 14.4 Plt Count 407 MPV 8.4 Neut % (Auto) 70.1 Lymph % (Auto) 17.2 [place] % (Auto) 9.2 Eos % (Auto) 2.3 Baso % (Auto) 0.6 Neut # (Auto) 8.7 H Lymph # (Auto) 2.1 [place] # (Auto) 1.2 H Eos # (Auto) 0.3 Baso # (Auto) 0.1 Sodium 135 L Potassium 4.1 Chloride 98 Carbon Dioxide 29 Anion Gap 12.1 BUN 11 D Creatinine 0.80 Estimated Creat Clear 70 Estimated GFR 70 Est GFR ( Amer) 85 Glucose 136 H Calcium 8.9 Magnesium 2.6 H D Total Bilirubin 0.6 AST 29 ALT 21 Alkaline Phosphatase 89 Total Protein 7.7 Albumin 4.2 Globulin 3.5 H Albumin/Globulin Ratio 1.2 Lipase Urine Color Yellow Urine Appearance Clear Urine pH 7.0 Ur Specific [place] 1.025 Urine Protein Trace Urine Glucose (UA) Negative Urine Ketones Negative Urine Blood Negative Urine Nitrate Negative Urine Bilirubin Negative Urine Urobilinogen 0.2 Ur Leukocyte Esterase Trace Urine RBC None Urine WBC Occasional Ur Squamous Epith Cells Occasional Urine Bacteria Trace HCV Ab TETO w/Rflx PCR Qn HIV Ag/Ab Combo Qual Negative 01/26/25 10:40 WBC 15.2 H RBC 4.51 Hgb 13.2 Hct 39.4 MCV 87.4 MCH 29.3 MCHC 33.5 RDW 14.0 Plt Count 426 H MPV 8.5 Neut % (Auto) 80.2 H Lymph % (Auto) 10.0 [place] % (Auto) 8.3 Eos % (Auto) 0.5 Baso % (Auto) 0.5 Neut # (Auto) 12.2 H Lymph # (Auto) 1.5 [place] # (Auto) 1.3 H Eos # (Auto) 0.1 Baso # (Auto) 0.1 Sodium 137 Potassium 3.8 Chloride 102 Carbon Dioxide 31 H Anion Gap 7.8 BUN 15 Creatinine 0.70 Estimated Creat Clear 69 Estimated GFR 82 Est GFR ( Amer) 99 Glucose 157 H Calcium 9.1 Magnesium 3.6 H Total Bilirubin 0.6 AST 25 ALT 23 Alkaline Phosphatase 109 Total Protein 8.1 Albumin 4.3 Globulin 3.8 H Albumin/Globulin Ratio 1.1 Lipase 33 Urine Color Urine Appearance Urine pH Ur Specific [place] Urine Protein Urine Glucose (UA) Urine Ketones Urine Blood Urine Nitrate Urine Bilirubin Urine Urobilinogen Ur Leukocyte Esterase Urine RBC Urine WBC Ur Squamous Epith Cells Urine Bacteria HCV Ab TETO w/Rflx PCR Qn Negative HIV Ag/Ab Combo Qual DS: Diagnosis Discharge Diagnosis (1) Diverticulitis: Status: Acute Code(s): K57.92 - Diverticulitis of intestine, part unspecified, without perforation or abscess without bleeding Meds Home Medications and Allergies Home Medications ?Medication ?Instructions ?Recorded ?Confirmed ?Type atorvastatin 10 mg tablet (Lipitor) 10 mg PO HS Cholesterol 02/15/18 01/27/25 History lisinopril 20 mg tablet 20 mg PO DAILY Hypertension 02/15/18 01/26/25 History levocetirizine 5 mg tablet 5 mg PO DAILY Allergy symptoms 11/19/22 01/26/25 History amitriptyline 25 mg tablet 25 mg PO HS 01/26/25 01/26/25 History aspirin 81 mg tablet 81 mg PO DAILY 01/26/25 01/26/25 History omeprazole 40 mg capsule,delayed 40 mg PO DAILY 01/26/25 01/26/25 History release levofloxacin 750 mg tablet 750 mg PO DAILY 9 days #9 tabs 01/27/25 Rx metronidazole 500 mg tablet 500 mg PO Q8H 9 days #27 tabs 01/27/25 Rx triamterene 37.5 1 tab PO DAILY 01/27/25 01/27/25 History mg-hydrochlorothiazide 25 mg tablet New Prescriptions to Start Prescriptions: levofloxacin Earnest,Trevor metronidazole Trevor Tinoco Allergies Allergy/AdvReac Type Severity Reaction Status Date / Time oxycodone (From Percocet) Allergy Verified 02/02/24 10:39 Discharge Plan Disposition Patient Disposition: Home, Self-Care Condition: Fair Follow up Plan Follow up with: Yessica Murdock [Primary Care Provider, Medical] - 1 week Referral Note: please call for appointment Prescriptions/Medication Reconciliation: New levofloxacin 750 mg tablet 750 mg PO DAILY 9 Days Qty: 9 0RF metronidazole 500 mg tablet 500 mg PO Q8H 9 Days Qty: 27 0RF Continued atorvastatin [Lipitor] 10 MG tablet 10 mg PO HS lisinopril 20 MG tablet 20 mg PO DAILY omeprazole 40 mg capsule,delayed release(DR/EC) 40 mg PO DAILY amitriptyline 25 mg tablet 25 mg PO HS Patient Comments: TAKE 1 TABLET BY MOUTH EVERY NIGHT aspirin 81 mg Tablet 81 mg PO DAILY triamterene-hydrochlorothiazid 37.5-25 mg tablet 1 tab PO DAILY Patient Comments: TAKE 1 TABLET BY MOUTH DAILY levocetirizine 5 mg tablet 5 mg PO DAILY Problem Reconciliation Problems Reviewed?: Yes Patient Discharge Instructions DIET: other Patient Instructions: Diverticulitis, Low-Fiber/Low-Residue Diet, Stop Light Infection Print Language: Bulgarian Providers Primary Care Provider: Yessica Murdock Admit Provider: Trevor Tinoco Attending Provider: Trevor Tinoco
--- NOTE | 2025-01-28 10:42 | SW/DCPLANNER ---
Spoke with patient on the phone. Patient stated that she is doing really well. Patient stated that she was able to get her new medicine picked up. Patient stated that she was is aware of her upcoming appointments. Patient stated that she has no concerns or questions at this time. Rupal Mina
== END 2025-01-27 11:15 | disposition home or self-care (01) ==
LOC: ER 10:56 → 2ND 13:05
PROVIDERS: Admitting Provider Student in an Organized Health Care Education/Training Program; Emergency Provider Student in an Organized Health Care Education/Training Program; PCP Family Medicine; Visit Provider Student in an Organized Health Care Education/Training Program
DX: K57.32 Diverticulitis of large intestine without perforation or abscess without bleeding (principal); K59.39 Other megacolon; I10 Essential (primary) hypertension; K21.9 Gastro-esophageal reflux disease without esophagitis; K59.09 Other constipation; E83.42 Hypomagnesemia; E66.9 Obesity, unspecified; E78.5 Hyperlipidemia, unspecified; N20.0 Calculus of kidney; K80.20 Calculus of gallbladder without cholecystitis without obstruction; Z79.899 Other long term (current) drug therapy; Z85.3 Personal history of malignant neoplasm of breast; Z88.5 Allergy status to narcotic agent; Z68.30 Body mass index [BMI] 30.0-30.9, adult; Z90.10 Acquired absence of unspecified breast and nipple; Z92.21 Personal history of antineoplastic chemotherapy; Z79.82 Long term (current) use of aspirin
CPT/HCPCS: 96361 ×2; 96374; 96375; 96376 ×2; 74177; 80053; 81001; 83690; 83735; 85025; 86803; 87040; 87389; 99231; 99252; 99285; G0378; J0131; J1650; J2270; J2405; J2543; J7120; Q9967

== ENCOUNTER 2025-05-16 08:40 | Day surgery (SDC) | payer MEDICARE, MEDICAID, SELFPAY ==
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
[2025-05-14 09:52] VITALS: BMI 30.5
--- NOTE | 2025-05-15 07:54 | HMH.PROCNOTE ---
[facility] Procedure Note Date: 05/16/25 Time: 10:30 Procedure Note:: Sigmoidoscopy procedure Report: Attempted colonoscopy Endoscopist: Ortiz Calzada II, MD Referring physician: Yessica Murdock MD Date of Procedure: May 16, 2025 Equipment: Olympus [id number] adult colonoscope Sedation: MAC sedation Indication: Mrs. Sun is a 74-year-old female who is here for diagnostic colonoscopy. The patient has struggled with chronic constipation. She also has had an ED visit in late January 2025 for abdominal pain and her CAT scan showed acute sigmoid diverticulitis with colonic ileus. She has had 2 bouts of diverticulitis. Her last colonoscopy was 9 or 10 years ago in [place] (Warren Berkowitz MD). The patient does report bloating. The patient reports no rectal bleeding, weight loss or family history of colon cancer. The examination is deemed medically necessary for diagnostic colonoscopy. Procedure: Prior to the procedure, a history and physical exam was performed, and patient's medications and allergies were reviewed. The risks, benefits and alternatives of the sedation and procedure were discussed with the patient. All questions were answered and informed consent was obtained. The patient was brought to the procedure room. Patient identification and proposed procedure were verified by the physician and the nurse. The patient was placed in a left lateral decubitus position and the scope was passed under direct vision. Throughout the procedure, the patient's blood pressure, pulse, and oxygen saturations were monitored continuously. The colonoscopy was accomplished without difficulty. The patient tolerated the procedure well. Findings: On digital rectal examination, there was normal rectal tone. The scope was then inserted through the anal canal into the rectum and advanced to 25 to 30 cm from the anal verge. There was a very fixed sigmoid colon with marked pericolonic adhesions and attempts to advance approximately were difficult because of this area of fixed sigmoid colon. I did feel that advancing the scope would potentially create greater risk and decided that we would not try to move to this fixed region and avoid complication. There were extensive diverticuli in this region of the sigmoid colon. Upon withdrawal the rectosigmoid and rectum were normal. Upon retroflexion there were grade 2 internal hemorrhoids. Impression: 1. Extensive sigmoid diverticulosis with area of fixed pericolonic adhesions in the sigmoid colon 2. Grade 2 internal hemorrhoids Plan: The patient does have extensive sigmoid pericolonic adhesions and I felt there would be considerable risk to pushing through this fixed area. The proximal colon was not visualized. We will discuss whether CT colonography is warranted. I do feel that this segment of colon may need to be repaired especially if she has recurrence of her diverticulitis.
[2025-05-16 09:15] VITALS: BP 172/83; PULSE 71; RESP 16; TEMP 36.1; O2SAT 94
[2025-05-16] MEDS: LACTATED RINGERS 1000ML 1,000 ML 50 ML IV (09:27)
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
[2025-05-16 10:34] VITALS: BP 119/64; PULSE 69; RESP 18; TEMP 36.4; O2SAT 94
[2025-05-16 10:44] VITALS: BP 106/56; PULSE 71; RESP 18; O2SAT 97
[2025-05-16 10:54] VITALS: BP 142/69; PULSE 70; RESP 18; O2SAT 98
[2025-05-16 11:04] VITALS: BP 152/71; PULSE 66; RESP 18; O2SAT 97
[2025-05-16 11:33] VITALS: BP 162/80; PULSE 68; RESP 18; TEMP 36.4; O2SAT 97
== END 2025-05-16 11:33 | disposition home or self-care (01) ==
PROVIDERS: PCP Family Medicine; Visit Provider Internal Medicine Gastroenterology
PROC: 0DJD8ZZ Inspection of Lower Intestinal Tract, Via Natural or Artificial Opening Endoscopic (ICD-10-PCS; CPT 45378; principal; 2025-05-16 10:30)
DX: K59.09 Other constipation (principal); K57.30 Diverticulosis of large intestine without perforation or abscess without bleeding; K64.1 Second degree hemorrhoids; K66.0 Peritoneal adhesions (postprocedural) (postinfection); Z87.19 Personal history of other diseases of the digestive system; E78.5 Hyperlipidemia, unspecified; I10 Essential (primary) hypertension; Z85.3 Personal history of malignant neoplasm of breast; Z87.891 Personal history of nicotine dependence; Z79.899 Other long term (current) drug therapy; Z79.82 Long term (current) use of aspirin; Z88.5 Allergy status to narcotic agent
CPT/HCPCS: 45378; J2003; J2704; J7120